=== PATIENT | female | born 1970 | race Caucasian/White ===

== ENCOUNTER 2019-11-09 19:10 | Emergency (ER) | payer BC ==
--- NOTE | 2019-11-09 21:10 | RAD REPORT ---
EXAM DESCRIPTION: RAD - Wrist Left 3 View - 11/09/2019 8:52 pm CLINICAL HISTORY: Left wrist pain status post injury FINDINGS: Subtle transverse lucency is present within the mid aspect of the scaphoid. This could rep resent a prominent trabecula or nondisplaced fracture. If the patient has point tenderness in this re gion further evaluation with CT or MRI may be helpful. No dislocation. Remainder the exam is unremarkable
--- NOTE | 2019-11-09 21:12 | EDPHYS ---
Physician Documentation [facility] Name: Mami Ziegler Age: 48 yrs Sex: Female : 1970 Arrival Date: 11/09/2019 Time: 19:12 Bed 11 Private MD: Wolf Jimenez HPI: 11/08 21:03 This 48 yrs old Female presents to ER via Ambulatory with complaints of Wrist abril Pain. 21:03 The patient or guardian reports decreased range of motion, injury, pain. The complaints abril affect the left wrist diffusely. Context: The problem was sustained at home. Onset: The symptoms/episode began/occurred 2 day(s) ago. Modifying factors: The symptoms are alleviated by elevation, holding still, ice/coldpack to affected area, splinting, the symptoms are aggravated by movement, dependent position. Associated signs and symptoms: The patient has no apparent associated signs or symptoms. Compartment Syndrome negative for numbness, tingling, positive for pain. The patient has not experienced similar symptoms in the past. CHILD WELFARE SPECIALIST: 23:53 LMP N/A - control method ll1 Historical: - Allergies: 19:32 No Known Allergies; ll1 - PMHx: 19:32 Hypertension; Hypothyroidism; Diabetes - NIDDM; ll1 - Immunization history:: Flu vaccine is up to date. - Social history:: Smoking status: Patient denies any tobacco usage or history of. Patient/guardian denies using alcohol, street drugs, tobacco products. - Family history:: not pertinent. ROS: 21:03 Constitutional: Negative for fever, chills, and weight loss, Eyes: Negative for injury, abril pain, redness, and discharge, ENT: Negative for injury, pain, and discharge, Neck: Negative for injury, pain, and swelling, Cardiovascular: Negative for chest pain, palpitations, and edema, Respiratory: Negative for shortness of breath, cough, wheezing, and pleuritic chest pain, Abdomen/GI: Negative for abdominal pain, nausea, vomiting, diarrhea, and constipation, Back: Negative for injury and pain, : Negative for injury, bleeding, discharge, and swelling, Skin: Negative for injury, rash, and discoloration, Neuro: Negative for headache, weakness, numbness, tingling, and seizure, Psych: Negative for depression, anxiety, suicide ideation, homicidal ideation, and hallucinations, Allergy/Immunology: Negative for hives, rash, and allergies, Endocrine: Negative for neck swelling, polydipsia, polyuria, polyphagia, and marked weight changes, Hematologic/Lymphatic: Negative for swollen nodes, abnormal bleeding, and unusual bruising. 21:03 MS/extremity: Positive for decreased range of motion, pain, swelling, of the lateral aspect of left wrist, medial aspect of left wrist and palmar aspect of left wrist. Exam: 21:03 Constitutional: This is a well developed, well nourished patient who is awake, alert, abril and in no acute distress. Head/Face: Normocephalic, atraumatic. Eyes: Pupils equal round and reactive to light, extra-ocular motions intact. Lids and lashes normal. Conjunctiva and sclera are non-icteric and not injected. Cornea within normal limits. Periorbital areas with no swelling, redness, or edema. ENT: Nares patent. No nasal discharge, no septal abnormalities noted. Tympanic membranes are normal and external auditory canals are clear. Oropharynx with no redness, swelling, or masses, exudates, or evidence of obstruction, uvula midline. Mucous membranes moist. Neck: Trachea midline, no thyromegaly or masses palpated, and no cervical lymphadenopathy. Supple, full range of motion without nuchal rigidity, or vertebral point tenderness. No Meningismus. Chest/axilla: Normal chest wall appearance and motion. Nontender with no deformity. No lesions are appreciated. Cardiovascular: Regular rate and rhythm with a normal S1 and S2. No gallops, murmurs, or rubs. Normal PMI, no JVD. No pulse deficits. Respiratory: Lungs have equal breath sounds bilaterally, clear to auscultation and percussion. No rales, rhonchi or wheezes noted. No increased work of breathing, no retractions or nasal flaring. Abdomen/GI: Soft, non-tender, with normal bowel sounds. No distension or tympany. No guarding or rebound. No evidence of tenderness throughout. Back: No spinal tenderness. No costovertebral tenderness. Full range of motion. Skin: Warm, dry with normal turgor. Normal color with no rashes, no lesions, and no evidence of cellulitis. MS/ Extremity: Pulses equal, no cyanosis. Neurovascular intact. Full, normal range of motion. Neuro: Awake and alert, GCS 15, oriented to person, place, time, and situation. Cranial nerves II-XII grossly intact. Motor strength 5/5 in all extremities. Sensory grossly intact. Cerebellar exam normal. Normal gait. Psych: Awake, alert, with orientation to person, place and time. Behavior, mood, and affect are within normal limits. 21:03 Musculoskeletal/extremity: Extremities: noted in the lateral aspect of left wrist and medial aspect of left wrist: decreased ROM, pain, ROM: full active range of motion, full passive range of motion, Circulation is intact in all extremities. Sensation intact. Compartment Syndrome exam of affected extremity: is normal. DVT Exam: negative Homans' sign noted on exam, no appreciated bluish discoloration, no erythema, no increased warmth, pain, swelling, tenderness. Vital Signs: 19:30 BP 134 / 73; Pulse 92; Resp 17; Temp 97.2; Pulse Ox 100% ; Pain 8/10; ll1 MDM: 20:26 Patient medically screened. [facility] 21:06 Data reviewed: vital signs, nurses notes, radiologic studies, plain films. [facility] 21:12 Differential diagnosis: dislocation, closed fracture, contusion, tendonitis. Data abril interpreted: alarm security or surveillance monitor: rate is 92 beats/min, rhythm is normal sinus rhythm, Pulse oximetry: on room air is 100 %. Test interpretation: by ED physician or midlevel provider: plain radiologic studies. Counseling: I had a detailed discussion with the patient and/or guardian regarding: the historical points, exam findings, and any diagnostic results supporting the discharge/admit diagnosis, radiology results, the need for outpatient follow up, for definitive care, a orthopedic surgeon. Medication response: ibuprofen administration has improved the patient's pain. ED course: no fracture seen, return if worse. 11/08 20:40 Order name: XRAY Wrist LEFT 3 view 11/08 21:03 Order name: Splint: cock up splint; Complete Time: 23:52 [facility] 11/08 21:03 Order name: Ice pack; Complete Time: 21:11 [facility] Administered Medications: 21:08 Drug: Motrin 600 mg Route: PO; 21:45 Follow up: Response: No adverse reaction; RASS: Alert and Calm (0) ll1 Disposition: 11/09/19 21:11 Discharged to Home. Impression: Fall due to bumping against object, Pain in left wrist. - Condition is Stable. - Discharge Instructions: Joint Pain, Musculoskeletal Pain, Wrist Pain, Cryotherapy, [id number], Cryotherapy, Joint Pain, [id number]. - Prescriptions for Tylenol- Codeine #3 300-30 mg Oral Tablet - take 2 tablets by ORAL route every 6 hours As needed; 24 tablet. Motrin IB 200 mg Oral Tablet - take 2 tablet by ORAL route every 6 hours As needed as needed with food; 30 tablet. - Medication Reconciliation Form, Thank You Letter, Antibiotic Education, Prescription Opioid Use, Work release form form. - Follow up: Private Physician; When: 2 - 3 days; Reason: Recheck today's complaints, Continuance of care, Re-evaluation by your physician. Follow up: Jeyson Gardiner MD; When: 2 - 3 days; Reason: Recheck today's complaints, Continuance of care, Re-evaluation by your physician. - Problem is new. - Symptoms have improved. Signatures: Dispatcher [employer] EDFlip Stock RN RN Wolf Pastrana MD MD cha Lewis, Lynsay, RN RN ll1 Corrections: (The following items were deleted from the chart) 21:11 21:11 11/09/2019 21:11 Discharged to Home. Impression: Fall due to bumping against abril object; Pain in left wrist. Condition is Stable. Forms are Medication Reconciliation Form, Thank You Letter, Antibiotic Education, Prescription Opioid Use. Follow up: Private Physician; When: 2 - 3 days; Reason: Recheck today's complaints, Continuance of care, Re-evaluation by your physician. Problem is new. Symptoms have improved. [facility] 21:47 21:11 11/09/2019 21:11 Discharged to Home. Impression: Fall due to bumping against ll1 object; Pain in left wrist. Condition is Stable. Forms are Medication Reconciliation Form, Thank You Letter, Antibiotic Education, Prescription Opioid Use. Follow up: Private Physician; When: 2 - 3 days; Reason: Recheck today's complaints, Continuance of care, Re-evaluation by your physician. Follow up: Jeyson Gardiner; When: 2 - 3 days; Reason: Recheck today's complaints, Continuance of care, Re-evaluation by your physician. Problem is new. Symptoms have improved. abril
--- NOTE | 2019-11-09 21:12 | ER ---
Nurse's Notes [facility] Name: Mami Ziegler Age: 48 yrs Sex: Female : 1970 Arrival Date: 11/09/2019 Time: 19:12 Bed 11 Private MD: Diagnosis: Fall due to bumping against object;Pain in left wrist Presentation: 11/08 19:30 Chief complaint: Patient states: Left wrist pain after trip and fall Sunday night. Left ll1 lateral wrist pain since. Coronavirus screen: Proceed with normal triage. Patient denies a cough. Patient denies shortness of breath or difficulty breathing. Patient denies measured and/or subjective temperature greater than 100.4F prior to today's visit. Patient denies travel on a cruise ship or to a country the [facility] currently lists as an affected area. Patient denies contact with known and/or suspected case of COVID-19. Ebola Screen: Patient denies travel to an Ebola-affected area in the 21 days before illness onset. Initial Sepsis Screen: Does the patient meet any 2 criteria?. Risk Assessment: Do you want to hurt yourself or someone else? Patient reports no desire to harm self or others. Onset of symptoms was November 07, 2019. 19:30 Method Of Arrival: Ambulatory 1 19:30 Acuity: FRANK 4 ll1 23:53 Initial Sepsis Screen: Does the patient have a suspected source of infection? No. ll1 Patient's initial sepsis screen is negative. REGISTRATION REP: 23:53 LMP N/A - control method ll1 Historical: - Allergies: 19:32 No Known Allergies; ll1 - PMHx: 19:32 Hypertension; Hypothyroidism; Diabetes - NIDDM; ll1 - Immunization history:: Flu vaccine is up to date. - Social history:: Smoking status: Patient denies any tobacco usage or history of. Patient/guardian denies using alcohol, street drugs, tobacco products. - Family history:: not pertinent. Screenin:30 Abuse screen: Denies threats or abuse. Nutritional screening: No deficits noted. ll1 Tuberculosis screening: No symptoms or risk factors identified. Fall Risk None identified. Total Carrington Fall Scale indicates No Risk (0-24 pts). Assessment: 20:29 General: Appears in no apparent distress. Behavior is calm, cooperative. Pain: ll1 Complains of pain in left lateral wrist Quality of pain is described as aching, Pain began 2-3 days ago. Is intermittent. Neuro: No deficits noted. Cardiovascular: No deficits noted. Respiratory: No deficits noted. Musculoskeletal: Circulation, motion, and sensation intact. Capillary refill < 3 seconds, Tenderness present in left lateral wrist Reports pain in left lateral wrist. 21:30 Reassessment: Patient appears in no apparent distress at this time. No changes from 1 previously documented assessment. Patient and/or family updated on plan of care and expected duration. Pain level reassessed. Patient is alert, oriented x 3, equal unlabored respirations, skin warm/dry/pink. Vital Signs: 19:30 BP 134 / 73; Pulse 92; Resp 17; Temp 97.2; Pulse Ox 100% ; Pain 8/10; ll1 ED Course: 19:12 Patient arrived in ED. ag3 19:32 Triage completed. ll1 19:33 Arm band placed on Patient notified of wait time. 1 20:01 Flip Guzman RN is Primary Nurse. sg 20:26 Wolf Pastrana MD is Attending Physician. [facility] 20:30 Patient has correct armband on for positive identification. Bed in low position. Call ll1 light in reach. Side rails up X 1. 20:52 XRAY Wrist LEFT 3 view In Process Unspecified. EDMS 21:11 Jeyson Gardiner MD is Referral Physician. [facility] 21:28 Patient did not have IV access during this emergency room visit. Velcro wrist splint ll1 applied to left wrist. PMS intact pre and post splint application. 23:53 No provider procedures requiring assistance completed. ll1 Administered Medications: 21:08 Drug: Motrin 600 mg Route: PO; sg 21:45 Follow up: Response: No adverse reaction; RASS: Alert and Calm (0) 1 Outcome: 21:11 Discharge ordered by . abril 21:47 Patient left the ED. ll1 21:47 Discharged to home ambulatory. 1 21:47 Condition: stable 21:47 Discharge instructions given to patient, Instructed on discharge instructions, follow up and referral plans. medication usage, Demonstrated understanding of instructions, follow-up care, medications, splint care, Prescriptions given X 2. Signatures: Dispatcher [employer] EDMS Flip Guzman RN RN sg Anderson, Corey, MD MD cha Gomez, Alice ag3 Karolina العراقي, RN RN ll1
[2019-11-09] MEDS ORDERED: IBUPROFEN 200 MG TAB PO ONE (21:16)
[2019-11-09 21:53] VITALS: BP 134/73; TEMP 97.2; O2SAT 100
== END 2019-11-09 21:47 | disposition home or self-care (01) ==
LOC: ER 19:10
DX: M25.532 Pain in left wrist (principal); W18.00XA Striking against unspecified object with subsequent fall, initial encounter; Y93.01 Activity, walking, marching and hiking; Y92.009 Unspecified place in unspecified non-institutional (private) residence as the place of occurrence of the external cause; I10 Essential (primary) hypertension
CPT/HCPCS: 99284

== ENCOUNTER 2022-08-06 02:25 | Emergency (ER) | payer BC ==
--- OUTSIDE RECORDS SUMMARY | 2022-08-06 02:28 | XMS REPORT | Continuity of Care Document ---
:1970 Author Organization [facility] t Address [address] [facility] [address] [place] [id number] Care Team Providers Name Role Phone JENNIFER SCHAFER Primary Care Physician Unavailable STAS DIEHL III Attending Clinician Unavailable King FREDA MD, James C Attending Clinician Unknown, Attending Attending Clinician Unavailable Doctor Unassigned, [place] Attending Clinician Unavailable Jennifer Schafer Attending Clinician Tammy Castro Attending Clinician TAMMY CARRERA Attending Clinician Unavailable Carolina Owen RN Attending Clinician Unavailable Only, Dmitriy Poole Test Attending Clinician Unavailable Lucas Rosenberg MD Attending Clinician LUCAS ROSENBERG Attending Clinician Unavailable Jenna Gonzales RN Attending Clinician Unavailable Nurse, Dmitriy [facility] Attending Clinician Unavailable BREE MILAN Attending Clinician Unavailable Bree Robins Attending Clinician Gabriella Medina RN Attending Clinician Unavailable Hanna Martinez Attending Clinician HANNA PALACIOS Attending Clinician Unavailable ODETTE PERDOMO Attending Clinician Unavailable Coral Oneil Attending Clinician CORAL PELLETIER Attending Clinician Unavailable Nirav Moyer MD Attending Clinician NIRAV MOYER Attending Clinician Unavailable Payers Payer Name Policy Type Policy Number Effective Date Expiration Date S ource [facility] [id number] 2017 00:00:00 SELECT Problems Condition Condition Condition Status Onset Resolution Last Treating Co mments Source Name Details Category Date Date Treatment Clinician Date TFCC TFCC Disease Active Methodi (triangula (triangula 7-20 st r r 00:00: Hospita fibrocarti fibrocarti 00 l angela angela complex) complex) injury, injury, left, left, initial initial encounter encounter No known No known Disease Unive rs active active ity of problems problems [facility] Allergies, Adverse Reactions, Alerts Allergy Allergy Status Severity Reaction(s) Onset Inactive Treating Comm ents Source Name Type Date Date Clinician Dog Propensi Active Other (See Meth keaton Dander ty to Comments) 01-18 adverse 00:00: Hospita reaction 00 l s to drug Ragweed Propensi Active Other (See Met hodi Pollen ty to Comments) 01-18 adverse 00:00: Hospita reaction 00 l s to drug NO KNOWN Drug Active Univers ALLERGIE Class ity of S [facility] Family History Family Member Diagnosis Comments Start Date Stop Date Source Maternal grandmother Cancer [facility] Natural mother Heart disease [facility] Natural sister Diabetes [facility] Natural son Heart disease [facility] Social History Social Habit Start Date Stop Date Quantity Comments Source Exposure to 2022-07-09 2022-07-19 Not sure [facility]-CoV-2 00:00:00 14:54:00 [facility] (event) [place] Alcohol intake 2020-01-19 2020-01-19 Ex-drinker [facility] 00:00:00 00:00:00 (finding) Tobacco use and 2019-11-13 2019-11-13 Smokeless tobacco Un iversity of exposure 00:00:00 00:00:00 non-user [facility] Sex Ass[birth year] At [birth year] Universit y of 00:00:00 00:00:00 [facility] Smoking Status Start Date Stop Date Source Never smoked tobacco [facility] Medications Ordered Filled Start Stop Current Ordering Indication Dosage Frequency Signature Comments Components Source Medication Medication Date Date Medication? Clinician (SIG) Name Name rizatriptan Yes [id number] 5mg Take 1 Univers 5 mg 3-01 tablet by ity of [place] 00 needed for Med ical Migraine. Branch May repeat in 2 hours if needed rizatriptan 2022-0 Yes [id number] 5mg Take 1 Univers 5 mg 3-01 tablet by ity of [place] 00 needed for Med ical Migraine. Branch May repeat in 2 hours if needed ondansetron 2022-0 2022- Yes [id number] 4mg Take 1 Univers 4 mg 1-06 -12 tablet by ity of [place] 05:[place] :00 every 8 Medica l (eight) Branch hours as needed for Nausea and Vomiting (N/V) for up to 5 days. losartan 50 2021-0 Yes [id number] 50mg Take 1 Univers mg tablet 6-15 tablet by ity o f 00:00: mouth [place] 00 daily. Medical Branch losartan 50 0 Yes [id number] 50mg Take 1 Univers mg tablet 6-15 tablet by ity o f 00:00: mouth [place] 00 daily. Medical Branch losartan 50 0 Yes [id number] 50mg Take 1 Univers mg tablet 6-15 tablet by ity o f 00:00: mouth [place] 00 daily. Medical Branch losartan 50 2021-0 Yes [id number] 50mg Take 1 Univers mg tablet 6-15 tablet by ity o f 00:00: mouth [place] 00 daily. Medical Branch losartan 50 2021-0 Yes [id number] 50mg Take 1 Univers mg tablet 6-15 tablet by ity o f 00:00: mouth [place] 00 daily. Medical Branch losartan 50 2021-0 Yes [id number] 50mg Take 1 Univers mg tablet 6-15 tablet by ity o f 00:00: mouth [place] 00 daily. Medical Branch losartan 50 2021-0 Yes [id number] 50mg Take 1 Univers mg tablet 6-15 tablet by ity o f 00:00: mouth [place] 00 daily. Medical Branch losartan 50 2021-0 Yes [id number] 50mg Take 1 Univers mg tablet 6-15 tablet by ity o f 00:00: mouth [place] 00 daily. Medical Branch losartan 50 2021-0 Yes [id number] 50mg Take 1 Univers mg tablet 6-15 tablet by ity o f 00:00: mouth [place] 00 daily. Medical Branch losartan 50 Yes [id number] 50mg Take 1 Univers mg tablet 6-15 tablet by ity o f 00:00: mouth [place] 00 daily. Medical Branch meloxicam 2019-05 Yes 15mg QD Take 15 mg Me thodi (MOBIC) 15 0-[address] mg tablet 13:05: daily. Hospit a 04 l VICTOZA Yes INJECT 0.6 Univ ers 3-RENNY 0.6 6-21 MG ity of mg/0.1 mL 00:00: [place]O [place] (18 mg/3 00 BLANCA DAILY Medic al mL) FOR THE Branch injection FIRST WEEK THEN INJECT 1.2 MG THE SECOND WEEK THEN 1.8 MG DAILY FOR 30 DAYS VICTOZA Yes INJECT 0.6 Univ ers 3-RENNY 0.6 6-21 MG ity of mg/0.1 mL 00:00: [place] (18 mg/3 00 BLANCA DAILY Medic al mL) FOR THE Branch injection FIRST WEEK THEN INJECT 1.2 MG THE SECOND WEEK THEN 1.8 MG DAILY FOR 30 DAYS VICTOZA Yes INJECT 0.6 Univ ers 3-RENNY 0.6 6-21 MG ity of mg/0.1 mL 00:00: [place]ANEO [place] (18 mg/3 00 BLANCA DAILY Medic al mL) FOR THE Branch injection FIRST WEEK THEN INJECT 1.2 MG THE SECOND WEEK THEN 1.8 MG DAILY FOR 30 DAYS VICTOZA Yes INJECT 0.6 Univ ers 3-RENNY 0.6 6-21 MG ity of mg/0.1 mL 00:00: [place] (18 mg/3 00 BLANCA DAILY Medic al mL) FOR THE Branch injection FIRST WEEK THEN INJECT 1.2 MG THE SECOND WEEK THEN 1.8 MG DAILY FOR 30 DAYS VICTOZA Yes INJECT 0.6 Univ ers 3-RENNY 0.6 6-21 MG ity of mg/0.1 mL 00:00: [place] (18 mg/3 00 BLANCA DAILY Medic al mL) FOR THE Branch injection FIRST WEEK THEN INJECT 1.2 MG THE SECOND WEEK THEN 1.8 MG DAILY FOR 30 DAYS VICTOZA Yes INJECT 0.6 Univ ers 3-RENNY 0.6 6-21 MG ity of mg/0.1 mL 00:00: [place] (18 mg/3 00 BLANCA DAILY Medic al mL) FOR THE Branch injection FIRST WEEK THEN INJECT 1.2 MG THE SECOND WEEK THEN 1.8 MG DAILY FOR 30 DAYS VICTOZA Yes INJECT 0.6 Univ ers 3-RENNY 0.6 6-21 MG ity of mg/0.1 mL 00:00: [place]ANEO [place] (18 mg/3 00 BLANCA DAILY Medic al mL) FOR THE Branch injection FIRST WEEK THEN INJECT 1.2 MG THE SECOND WEEK THEN 1.8 MG DAILY FOR 30 DAYS VICTOZA Yes INJECT 0.6 Univ ers 3-RENNY 0.6 6-21 MG ity of mg/0.1 mL 00:00: [place]ANEO [place] (18 mg/3 00 BLANCA DAILY Medic al mL) FOR THE Branch injection FIRST WEEK THEN INJECT 1.2 MG THE SECOND WEEK THEN 1.8 MG DAILY FOR 30 DAYS VICTOZA Yes INJECT 0.6 Univ ers 3-RENNY 0.6 6-21 MG ity of mg/0.1 mL 00:00: [place]ANEO [place] (18 mg/3 00 BLANCA DAILY Medic al mL) FOR THE Branch injection FIRST WEEK THEN INJECT 1.2 MG THE SECOND WEEK THEN 1.8 MG DAILY FOR 30 DAYS VICTOZA Yes INJECT 0.6 Univ ers 3-RENNY 0.6 6-21 MG ity of mg/0.1 mL 00:00: [place]ANEO [place] (18 mg/3 00 BLANCA DAILY Medic al mL) FOR THE Branch injection FIRST WEEK THEN INJECT 1.2 MG THE SECOND WEEK THEN 1.8 MG DAILY FOR 30 DAYS VICTOZA Yes INJECT 0.6 Univ ers 3-RENNY 0.6 6-21 MG ity of mg/0.1 mL 00:00: SUBCUTANEO [place] (18 mg/3 00 BLANCA DAILY Medic al mL) FOR THE Branch injection FIRST WEEK THEN INJECT 1.2 MG THE SECOND WEEK THEN 1.8 MG DAILY FOR 30 DAYS VICTOZA Yes INJECT 0.6 Univ ers 3-RENNY 0.6 6-21 MG ity of mg/0.1 mL 00:00: [place]ANEO [place] (18 mg/3 00 BLANCA DAILY Medic al mL) FOR THE Branch injection FIRST WEEK THEN INJECT 1.2 MG THE SECOND WEEK THEN 1.8 MG DAILY FOR 30 DAYS VICTOZA 2020-0 Yes INJECT 0.6 Univ ers 3-RENNY 0.6 6-21 MG ity of mg/0.1 mL 00:00: [place] (18 mg/3 00 BLANCA DAILY Medic al mL) FOR THE Branch injection FIRST WEEK THEN INJECT 1.2 MG THE SECOND WEEK THEN 1.8 MG DAILY FOR 30 DAYS SUMAtriptan 2020-0 Yes TAKE 1 Univ ers 50 mg 5-14 TABLET BY ity of tablet 00:00: MOUTH [place] 00 TWICE Medical DAILY Branch NEEDED FOR 10 DAYS SUMAtriptan 2019-0 Yes TAKE 1 Univ ers 50 mg 5-14 TABLET BY ity of tablet 00:00: MOUTH [place] 00 TWICE Medical DAILY Branch NEEDED FOR 10 DAYS SUMAtriptan 2019-0 Yes TAKE 1 Univ ers 50 mg 5-14 TABLET BY ity of tablet 00:00: MOUTH [place] 00 TWICE Medical DAILY Branch NEEDED FOR 10 DAYS SUMAtriptan 2019-0 Yes TAKE 1 Univ ers 50 mg 5-14 TABLET BY ity of tablet 00:00: MOUTH [place] 00 TWICE Medical DAILY Branch NEEDED FOR 10 DAYS SUMAtriptan 2020-0 Yes TAKE 1 Univ ers 50 mg 5-14 TABLET BY ity of tablet 00:00: MOUTH [place] 00 TWICE Medical DAILY Branch NEEDED FOR 10 DAYS SUMAtriptan 2020-0 Yes TAKE 1 Univ ers 50 mg 5-14 TABLET BY ity of tablet 00:00: MOUTH [place] 00 TWICE Medical DAILY Branch NEEDED FOR 10 DAYS SUMAtriptan 2019-0 Yes TAKE 1 Univ ers 50 mg 5-14 TABLET BY ity of tablet 00:00: MOUTH [place] 00 TWICE Medical DAILY Branch NEEDED FOR 10 DAYS SUMAtriptan 2020-0 Yes TAKE 1 Univ ers 50 mg 5-14 TABLET BY ity of tablet 00:00: MOUTH [place] 00 TWICE Medical DAILY Branch NEEDED FOR 10 DAYS SUMAtriptan 2020-0 Yes TAKE 1 Univ ers 50 mg 5-14 TABLET BY ity of tablet 00:00: MOUTH [place] 00 TWICE Medical DAILY Branch NEEDED FOR 10 DAYS SUMAtriptan 2020-0 Yes TAKE 1 Univ ers 50 mg 5-14 TABLET BY ity of tablet 00:00: MOUTH [place] 00 TWICE Medical DAILY Branch NEEDED FOR 10 DAYS SUMAtriptan 2020-0 Yes TAKE 1 Univ ers 50 mg 5-14 TABLET BY ity of tablet 00:00: MOUTH [place] 00 TWICE Medical DAILY Branch NEEDED FOR 10 DAYS SUMAtriptan 2020-0 Yes TAKE 1 Univ ers 50 mg 5-14 TABLET BY ity of tablet 00:00: MOUTH [place] 00 TWICE Medical DAILY Branch NEEDED FOR 10 DAYS SUMAtriptan 2020-0 Yes TAKE 1 Univ ers 50 mg 5-14 TABLET BY ity of tablet 00:00: MOUTH [place] 00 TWICE Medical DAILY Branch NEEDED FOR 10 DAYS EUTHYROX 2020-0 Yes TAKE 1 Univers 100 mcg 5-13 TABLET BY ity of tablet 00:00: MOUTH ONCE [place] 00 DAILY ON Medical AN EMPTY Branch STOMACH IN THE MORNING EUTHYROX 2020-0 Yes TAKE 1 Univers 100 mcg 5-13 TABLET BY ity of tablet 00:00: MOUTH ONCE [place] 00 DAILY ON Medical AN EMPTY Branch STOMACH IN THE MORNING EUTHYROX 2020-0 Yes TAKE 1 Univers 100 mcg 5-13 TABLET BY ity of tablet 00:00: MOUTH ONCE [place] 00 DAILY ON Medical AN EMPTY Branch STOMACH IN THE MORNING EUTHYROX 2020-0 Yes TAKE 1 Univers 100 mcg 5-13 TABLET BY ity of tablet 00:00: MOUTH ONCE [place] 00 DAILY ON Medical AN EMPTY Branch STOMACH IN THE MORNING EUTHYROX 2020-0 Yes TAKE 1 Univers 100 mcg 5-13 TABLET BY ity of tablet 00:00: MOUTH ONCE [place] 00 DAILY ON Medical AN EMPTY Branch STOMACH IN THE MORNING EUTHYROX 2020-0 Yes TAKE 1 Univers 100 mcg 5-13 TABLET BY ity of tablet 00:00: MOUTH ONCE [place] 00 DAILY ON Medical AN EMPTY Branch STOMACH IN THE MORNING EUTHYROX 2020-0 Yes TAKE 1 Univers 100 mcg 5-13 TABLET BY ity of tablet 00:00: MOUTH ONCE [place] 00 DAILY ON Medical AN EMPTY Branch STOMACH IN THE MORNING EUTHYROX 2020-0 Yes TAKE 1 Univers 100 mcg 5-13 TABLET BY ity of tablet 00:00: MOUTH ONCE [place] 00 DAILY ON Medical AN EMPTY Branch STOMACH IN THE MORNING EUTHYROX 2020-0 Yes TAKE 1 Univers 100 mcg 5-13 TABLET BY ity of tablet 00:00: MOUTH ONCE [place] 00 DAILY ON Medical AN EMPTY Branch STOMACH IN THE MORNING EUTHYROX 2020-0 Yes TAKE 1 Univers 100 mcg 5-13 TABLET BY ity of tablet 00:00: MOUTH ONCE [place] 00 DAILY ON Medical AN EMPTY Branch STOMACH IN THE MORNING EUTHYROX 2020-0 Yes TAKE 1 Univers 100 mcg 5-13 TABLET BY ity of tablet 00:00: MOUTH ONCE 00 DAILY ON Medical AN EMPTY Branch STOMACH IN THE MORNING EUTHYROX 2020-0 Yes TAKE 1 Univers 100 mcg 5-13 TABLET BY ity of tablet 00:00: MOUTH ONCE 00 DAILY ON Medical AN EMPTY Branch STOMACH IN THE MORNING EUTHYROX 2020-0 Yes TAKE 1 Univers 100 mcg 5-13 TABLET BY ity of tablet 00:00: MOUTH ONCE 00 DAILY ON Medical AN EMPTY Branch STOMACH IN THE MORNING levothyroxi 2020-0 Yes TAKE 1 Meth [place] ne 5-[address] (Euthyrox) 00:00: MOUTH ONCE [facility] 100 mcg 00 DAILY ON l tablet AN EMPTY STOMACH IN THE MORNING atorvastati 2020-0 Yes TAKE 1 Univ ers n 20 mg 4-11 TABLET BY ity of tablet 00:00: MOUTH 00 EVERY DAY Medical AT [facility] FOR 30 DAYS atorvastati 2020-0 Yes TAKE 1 Univ ers n 20 mg 4-11 TABLET BY ity of tablet 00:00: MOUTH 00 EVERY DAY Medical AT [facility] FOR 30 DAYS atorvastati 2020-0 Yes TAKE 1 Univ ers n 20 mg 4-11 TABLET BY ity of tablet 00:00: MOUTH 00 [facility] at[facility]vastati 2020-0 Yes TAKE 1 Univ ers n 20 mg 4-11 TABLET BY ity of tablet 00:00: MOUTH 00 [facility] atorvastati 2020-0 Yes TAKE 1 Univ ers n 20 mg 4-11 TABLET BY ity of tablet 00:00: MOUTH 00 EVERY DAY Medical AT BEDTIME [place] FOR 30 DAYS atorvastati 2020-0 Yes TAKE 1 Univ ers n 20 mg 4-11 TABLET BY ity of tablet 00:00: MOUTH 00 EVERY DAY Medical AT BEDTIME [place] FOR 30 DAYS atorvastati 2020-0 Yes TAKE 1 Univ ers n 20 mg 4-11 TABLET BY ity of tablet 00:00: MOUTH 00 EVERY DAY Medical AT BEDTIME [place] FOR 30 DAYS atorvastati 2020-0 Yes TAKE 1 Univ ers n 20 mg 4-11 TABLET BY ity of tablet 00:00: MOUTH 00 EVERY DAY Medical AT BEDTIME [place] FOR 30 DAYS atorvastati 2020-0 Yes TAKE 1 Univ ers n 20 mg 4-11 TABLET BY ity of tablet 00:00: MOUTH [place] 00 EVERY DAY Medical AT BEDTIME [place] FOR 30 DAYS atorvastati 2020-0 Yes TAKE 1 Univ ers n 20 mg 4-11 TABLET BY ity of tablet 00:00: MOUTH [place] 00 EVERY DAY Medical AT BEDTIME [place] FOR 30 DAYS atorvastati 2020-0 Yes TAKE 1 Univ ers n 20 mg 4-11 TABLET BY ity of tablet 00:00: MOUTH [place] 00 EVERY DAY Medical AT BEDTIME [place] FOR 30 DAYS atorvastati 2020-0 Yes TAKE 1 Univ ers n 20 mg 4-11 TABLET BY ity of tablet 00:00: MOUTH [place] 00 EVERY DAY Medical AT BEDTIME [place] FOR 30 DAYS atorvastati 2020-0 Yes TAKE 1 Univ ers n 20 mg 4-11 TABLET BY ity of tablet 00:00: MOUTH [place] 00 EVERY DAY Medical AT [facility] FOR 30 DAYS losartan 50 2020-0 Yes TAKE 1 Univ ers mg tablet 4-06 TABLET BY ity o f 00:00: MOUTH ONCE [place] 00 DAILY FOR Medical 90 DAYS Branch hydroCHLORO 2020-0 Yes 12.5mg Take 12.5 Univers thiazide 4-06 mg by ity of 12.5 mg 00:00: mouth [place] tablet 00 daily. Medical Branch hydroCHLORO 2020-0 Yes 12.5mg Take 12.5 Univers thiazide 4-06 mg by ity of 12.5 mg 00:00: mouth [place] tablet 00 daily. Medical Branch hydroCHLORO 2020-0 Yes 12.5mg Take 12.5 Univers thiazide 4-06 mg by ity of 12.5 mg 00:00: mouth [place] tablet 00 daily. Medical Branch hydroCHLORO 2020-0 Yes 12.5mg Take 12.5 Univers thiazide 4-06 mg by ity of 12.5 mg 00:00: mouth [place] tablet 00 daily. Medical Branch hydroCHLORO 2020-0 Yes 12.5mg Take 12.5 Univers thiazide 4-06 mg by ity of 12.5 mg 00:00: mouth [place] tablet 00 daily. Medical Branch hydroCHLORO 2020-0 Yes 12.5mg Take 12.5 Univers thiazide 4-06 mg by ity of 12.5 mg 00:00: mouth [place] tablet 00 daily. Medical Branch hydroCHLORO 2020-0 Yes 12.5mg Take 12.5 Univers thiazide 4-06 mg by ity of 12.5 mg 00:00: mouth [place] tablet 00 daily. Medical Branch hydroCHLORO 2020-0 Yes 12.5mg Take 12.5 Univers thiazide 4-06 mg by ity of 12.5 mg 00:00: mouth [place] tablet 00 daily. Medical Branch losartan 50 0 Yes TAKE 1 Univ ers mg tablet 4-06 TABLET BY ity o f 00:00: MOUTH ONCE [place] 00 DAILY FOR Medical 90 DAYS Branch hydroCHLORO 2019-0 Yes 12.5mg Take 12.5 Univers thiazide 4-06 mg by ity of 12.5 mg 00:00: mouth [place] tablet 00 daily. Medical Branch losartan 50 Yes TAKE 1 Univ ers mg tablet 4-06 TABLET BY ity o f 00:00: MOUTH ONCE [place] 00 DAILY FOR Medical 90 DAYS Branch hydroCHLORO 2019-0 Yes 12.5mg Take 12.5 Univers thiazide 4-06 mg by ity of 12.5 mg 00:00: mouth [place] tablet 00 daily. Medical Branch hydroCHLORO 2019-0 Yes 12.5mg Take 12.5 Univers thiazide 4-06 mg by ity of 12.5 mg 00:00: mouth [place] tablet 00 daily. Medical Branch hydroCHLORO 2020-0 Yes 12.5mg Take 12.5 Univers thiazide 4-06 mg by ity of 12.5 mg 00:00: mouth [place] tablet 00 daily. Medical Branch hydroCHLORO 2019-0 Yes 12.5mg Take 12.5 Univers thiazide 4-06 mg by ity of 12.5 mg 00:00: mouth [place] tablet 00 daily. Medical Branch losartan 50 0 2021- No TAKE 1 Uni vers mg tablet 4-06 06-15 TABLET BY ity of 00:00: 00:00 MOUTH ONCE [place] 00 :00 DAILY FOR Medical 90 DAYS Branch losartan 2014-05 Yes [facility] (COZAAR) 50 2-10 [facility] MG tablet 00:00: Hospita 00 l metFORMIN Yes Methodi (GLUCOPHAGE 8-03 st ) 1,000 mg 00:00: Hospita tablet 00 l Vital Signs Vital Name Observation Time Observation Value Comments Source Systolic blood 2022-07-19 21:01:00 129 mm[Hg] Univer sity of pressure [facility] Diastolic blood 2022-07-19 21:01:00 89 mm[Hg] Unive rsity of pressure [place] [facility] Heart rate 2022-07-19 21:01:00 84 /min Universi ty of [place] [facility] Body temperature 2022-07-19 21:01:00 36.94 Ember Univ ersity of [place] [facility] Respiratory rate 2022-07-19 21:01:00 16 /min Univ ersity of [place] [facility] Body height 2022-07-19 21:01:00 165.1 cm Universi ty of [place] [facility] Body weight 2022-07-19 21:01:00 95.057 kg Universi ty [facility] [place] [facility] BMI 2022-07-19 21:01:00 34.87 kg/m2 Universi ty of [place] [facility] Oxygen saturation in 2022-07-19 21:01:00 96 /min University of Arterial blood by [facility] [place] [facility] Pulse oximetry Branch Systolic blood 2022-05-26 20:08:00 138 mm[Hg] Univer sity of pressure [place] [facility] Diastolic blood 2022-05-26 20:08:00 86 mm[Hg] Unive rsity of pressure [place] [facility] Heart rate 2022-05-26 20:08:00 88 /min Universi ty of [place] [facility] Body temperature 2022-05-26 20:08:00 36.67 Ember Univ ersity of [place] [facility] Respiratory rate 2022-05-26 20:08:00 17 /min Univ ersity of [place] [facility] Body weight 2022-05-26 20:08:00 94.53 kg Universi ty [facility] [place] [facility] BMI 2022-05-26 20:08:00 34.68 kg/m2 Universi ty [facility] [place] [facility] Oxygen saturation in 2022-05-26 20:08:00 98 /min University of Arterial blood by [facility] [place] [facility] Pulse oximetry Branch Systolic blood 2021-11-02 19:11:00 152 mm[Hg] Univer sity of pressure [place] [facility] Diastolic blood 2021-11-02 19:11:00 92 mm[Hg] Unive rsity of pressure [place] [facility] Heart rate 2021-11-02 19:08:00 82 /min Universi ty [facility] [place] [facility] Body temperature 2021-11-02 19:08:00 36.67 Ember Univ ersity of [place] [facility] Respiratory rate 2021-11-02 19:08:00 18 /min [facility] height 2021-11-02 19:08:[address] [facility] Body weight 2021-11-02 19:08:[address] [facility] BMI 2021-11-02 19:08:00 35.23 kg/m2 Universi [facility] [place] [facility] Oxygen saturation in 2021-11-02 19:08:00 96 /min [facility] Arterial blood by [facility] [place] [facility] Pulse oximetry Branch Systolic blood 2019-11-13 20:13:00 119 mm[Hg] Univer sity of [facility] Diastolic blood 2019-11-13 20:13:00 74 mm[Hg] [facility] Heart rate 2019-11-13 20:13:00 86 /min Universi ty [facility] Respiratory rate 2019-11-13 20:13:00 18 /min [facility] Body height 2019-11-13 20:13:[address] [facility] Body weight 2019-11-13 20:13:[address] [facility] BMI 2019-11-13 20:13:00 31.96 kg/m2 Universi ty [facility] Procedures Procedure Date / Time Performed Performing Clinician [facility] lizeth MDGABE PATIENT 2022-07-19 20:55:35 Doctor Unassigned, No [facility] FINANCIAL POLICY Name [facility] CONSENT/REFUSAL FOR 2022-05-26 20:02:00 Doctor Unassigned, No Un [facility] DIAGNOSIS AND Name Medical Branch TREATMENT POCT MOLECULAR FLU 2021-11-02 19:14:00 Bree Milan [facility] Plan of Care Planned Activity Planned Date Details Comments Source Future Scheduled 2022-05-07 COVID-19 VACCINE (#1) [facility] Test 11:39:05 [code = COVID-19 VACCINE (#1)] Future Scheduled 2022-05-07 Hepatitis C screening [facility] Test 11:39:05 (procedure) [code = 363524700] Future Scheduled 2022-05-[address] [facility] Test 11:39:05 malignant neoplasm of cervix (procedure) [code = 393247222] Future Scheduled 2022-05-[address] [facility] Test 11:39:05 SCREENING [code = BREAST CANCER SCREENING] Future Scheduled 2022-05-07 COLONOSCOPY SCREENING [facility] Test 11:39:05 [code = COLONOSCOPY SCREENING] Future Scheduled 2022-05-07 SHINGLES VACCINES (1 Met [facility] Test 11:39:05 of 2) [code = SHINGLES VACCINES (1 of 2)] Future Scheduled 2022-05-07 INFLUENZA VACCINE Method [facility] Test 11:39:05 [code = INFLUENZA VACCINE] Encounters Start End Encounter Admission Attending Care Care Encounter Source Date/Time Date/Time Type Type Clinicians Facility Department ID 2022-07-19 2022-07-19 Outpatient Dilcia DIEHL III [facility] [id number] Univers 15:20:00 15:49:10 STAS ityelena of [facility] 2022-07-19 2022-07-19 Stas Tamayo [facility] [id number] Univers 15:20:00 15:40:00 Care Unknown, Attending HEALTH [id number] ity of [place] 4.2.7.2.686 Fabio as VERITO?BLEA [id number] [address] MEDICAL OFFICE BUILDING 2022-07-19 2022-07-19 Orders Doctor YVETTE 1.2.840.114 [id number] Univers 00:00:00 00:00:00 Only Unassigned, [place] [id number] ity of [place] [facility] 4.2.7.2.686 Fabio as [id number] [address] 2022-07-19 2022-07-19 Letter Gilmar [facility] [id number] Univers 00:00:00 00:00:00 (Out) Jennifer Yoo [facility] 350.1.13.10 ity of [place] 4.2.7.2.686 Fabio as VERITO?BLEA [id number] [address] MEDICAL OFFICE BUILDING 2022-05-26 2022-05-26 Urgent Tammy Carrera [facility] [id number] Univers 14:00:00 14:20:00 Care Unknown, Attending HEALTH [id number] [facility] 4.2.7.2.686 Fabio as VERITO?BLEA [id number] [address] MEDICAL OFFICE BUILDING 2022-05-26 2022-05-26 Outpatient R CARRERA [facility] [id number] Univers 14:00:00 14:00:[address] [facility] 2022-05-26 2022-05-26 Orders Doctor YVETTE [id number] [id number] Univers 00:00:00 00:00:00 Only UnassignedNORMAN 350.1.13.10 ity of [place] [facility] 4.2.7.2.686 Fabio as [id number] [address] 2022-03-19 2022-03-19 Letter YVETTE Owen 1.2.840.114 [id number] Univers 00:00:00 00:00:00 (Out) [place] 350.1.13.10 it y of HOSPITAL 4.2.7.2.686 Fabio as [id number] [facility] 019 [place] 2022-03-18 2022-03-18 Laboratory Only, Dmitriy Db Test [facility] 1.2.8 40.114 [id number] Univers 16:45:00 17:00:00 Only [facility] 350.1.13. 10 ity of [place] 4.2.7.2.686 Fabio as VERITO?BLEA [id number] [address] MEDICAL OFFICE [facility] [address] 2022-03-18 2022-03-18 Outpatient R [facility] [id number] Univers 16:45:00 16:48:05 , LUCAS ity [facility] 2021-11-03 2021-11-03 Telephone YVETTE Gonzales [id number] Univers 00:00:00 00:00:00 Jenna AUSTIN 350.1.13.10 it y of HOSPITAL [id number] Fabio as [id number] [address] 2021-11-03 2021-11-03 Telephone Nurse, Dmitriy [facility] [id number] Univers 00:00:00 00:00:00 Db Urgent HEALTH 350.1.13.10 ity of Care [place] 4.2.7.2.686 Fabio as VERITO?BLEA [id number] [address] OFFICE [facility] 2021-11-02 2021-11-02 Outpatient R KAYLI [facility] [id number] Univers 14:00:00 14:32:44 BREE ity o f [facility] 2021-11-02 2021-11-02 Urgent [facility] [id number] Univers 14:00:00 14:20:00 Care Bree HEALTH 350.1.13.10 i ty of [place] 4.2.7.2.686 Fabio as VERTIO?BLEA [id number] [address] OFFICE [facility] 2021-06-05 2021-06-05 Telephone YVETTE Medina [id number] Univers 00:00:00 00:00:00 Gabriella A[place]IN 350.1.13.10 i ty of HOSPITAL 4.2.7.2.686 Fabio as [id number] [address] 2021-06-04 2021-06-04 Laboratory Only, Ang Db Test [facility] [id number] [id number] Univers 18:00:00 18:15:00 Only Philip Hanna [facility] 350.1.13.10 ity of [place] 4.2.7.2.686 Fabio as VERITO?BLEA [phone] [address] OFFICE [facility] 2021-06-04 2021-06-04 Outpatient R PHILIP [facility] [id number] Univers 18:00:00 17:58:01 HANNA ity of [facility] 2020-03-09 2020-03-09 Outpatient SIFODETTE Urban [facility] [id number] [place] 00:00:00 00:00:[address] 2020-02-17 2020-02-17 Outpatient SIFODETTE Urban [facility] [id number] [place] 00:00:00 00:00:[address] 2020-01-19 2020-01-19 Outpatient SIFODETTE Urban [facility] [id number] [place] 00:00:00 00:00:00 [address] 2020-01-19 2020-01-19 Outpatient SIFODETTE Urban [facility] [id number] [place] 00:00:00 00:00:00 [address] 2020-01-19 2020-01-19 Outpatient SIFODETTE Urban [facility] [id number] [place] 00:00:00 00:00:00 [address] 2020-01-19 2020-01-19 Outpatient SIFFODETTE [facility] [id number] [place] 00:00:00 00:00:00 [address] 2019-12-22 2019-12-22 [facility] [id number] 15:17:29 15:32:29 Visit Coral [facility] [id number] Surgical 4.2.7.2.686 Specialti [phone] [address] [place] 2019-12-22 2019-12-22 [facility] [id number] Univers 15:15:00 15:15:00 [facility] 2019-12-22 2019-12-22 Letter [facility] [id number] 00:00:00 00:00:00 (Out) [facility] [id number] Surgical 4.2.7.2.686 Specialti [phone] [address] 2019-11-21 2019-11-21 Outpatient Dil[facility] [id number] Univers 11:00:00 11:00:00 [facility] 2019-11-13 2019-11-13 Office Coral Pelletier [facility] [id number] Univers 15:09:13 15:24:13 Visit Nirav Moyer [facility] [id number] ity of Surgical 4.2.7.2.686 Fabio as Specialti [phone] Ok dical es 198 [facility] 2019-11-13 2019-11-13 Outpatient [facility] [id number] Univers 15:15:00 15:15:00 NIRAV [facility] Results Test Description Test Time Test Comments Results Result Comments Source POCT MOLECULAR FLU 2021-11-02 19:26:13 Test Item Value Reference Range Interpretation Comme nts POCT Molecular FluA (test code = 23783-6) Negative Negative POCT Molecular FluB (test code = 13302-6) Negative Negative Lab Interpretation (test code = 38054-5) Normal [facility]
[2022-08-06 02:51] LABS: Absolute Lymphocytes (CBC) 3.6 K/uL (0.7-4.9); Hematocrit 40.4 % (36.0-45.0); Lymphocytes % 46.6 % (15.3-44.8); MCV 79.6 fL (80-100); MPV 8.1 fL (7.6-11.3); RBC Red Blood Cell Count 5.08 M/uL (3.86-4.86)
[2022-08-06 03:10] LABS: Albumin 3.5 g/dL (3.4-5.0); Bilirubin Total 0.2 mg/dL (0.2-1.0); Potassium 3.6 mEq/L (3.5-5.1); Protein, Total 8.2 g/dL (6.4-8.2)
--- NOTE | 2022-08-06 05:11 | EDPHYS ---
Physician Documentation [facility] Name: Mami Ziegler Age: 51 yrs Sex: Female : 1970 Arrival Date: 08/06/2022 Time: 02:26 Bed 7 Private MD: ED Physician Jonhny Faith HPI: 08/06 04:04 This 51 yrs old Female presents to ER via Ambulatory with complaints of Fall Injury, ms3 Left Side Pain. 04:04 51-year-old female presents for left upper abdominal pain that radiates to her back. ms3 Patient states pain is a 9/10 and described as tight/cramping. Patient states pain becomes worse with deep breathing. Patient states yesterday she sneezed and the pain improved, however it returned.. Historical: - Allergies: 02:45 No Known Allergies; kl - PMHx: 02:45 Diabetes - NIDDM; Hypertension; Hypothyroidism; kl - Immunization history:: Adult Immunizations up to date. - Social history:: Smoking status: Patient denies any tobacco usage or history of. ROS: 04:04 Constitutional: Negative for fever, and chills. Neck: Negative for injury, pain, and ms3 swelling, Cardiovascular: Negative for chest pain, and palpitations. Respiratory: Negative for shortness of breath, cough, wheezing, and pleuritic chest pain. 04:04 MS/Extremity: Negative for injury and deformity, Skin: Negative for injury, rash, and discoloration. 04:04 Abdomen/GI: Positive for abdominal pain. 04:04 All other systems are negative. Exam: 04:04 Constitutional: This is a well developed, well nourished patient who is awake, alert, ms3 and in no acute distress. Head/Face: Normocephalic, atraumatic. Neck: Trachea midline, no cervical lymphadenopathy. Supple, full range of motion without nuchal rigidity, or vertebral point tenderness. No Meningismus. Chest/axilla: Normal chest wall appearance and motion. Nontender with no deformity. Cardiovascular: Regular rate and rhythm with a normal S1 and S2. No gallops, murmurs, or rubs. Normal PMI, no JVD. No pulse deficits. Respiratory: Lungs have equal breath sounds bilaterally, clear to auscultation and percussion. No rales, rhonchi or wheezes noted. No increased work of breathing, no retractions or nasal flaring. 04:04 Abdomen/GI: Inspection: abdomen appears normal, Bowel sounds: normal, Palpation: moderate abdominal tenderness, in the left upper quadrant. Vital Signs: 02:43 BP 166 / 91; Pulse 88; Resp 16; Temp 98.7(O); Pulse Ox 98% on R/A; Weight 95.25 kg; kl Height 5 ft. 5 in. ; Pain 9/10; 02:43 Body Mass Index 34.95 (95.25 kg, 165.1 cm) kl 02:43 Pain Scale: Adult kl MDM: 02:33 Patient medically screened. ms3 04:04 Differential diagnosis: Pancreatitis versus gastritis versus bowel obstruction. ms3 08/06 02:33 Order name: Labs collected and sent; Complete Time: 02:53 ms3 08/06 02:33 Order name: IV Saline Lock; Complete Time: 02:53 ms3 08/06 02:33 Order name: CBC with Diff; Complete Time: 03:14 ms3 08/06 02:33 Order name: CMP; Complete Time: 03:14 ms3 08/06 02:33 Order name: Lipase; Complete Time: 03:14 ms3 08/06 02:33 Order name: CT Abd/Pelvis - IV Contrast Only ms3 Administered Medications: No medications were administered Disposition Summary: 08/06/22 05:10 Discharge Ordered Location: Home ms3 Condition: Stable ms3 Diagnosis - Abdominal pain, Generalized ms3 Followup: ms3 - With: Anson Stratton DO - When: 2 - 3 days - Reason: Recheck today's complaints Discharge Instructions: - Discharge Summary Sheet ms3 - Abdominal Pain, Adult ms3 Forms: - Medication Reconciliation Form ms3 - Thank You Letter ms3 - Antibiotic Education ms3 - Prescription Opioid Use ms3 Signatures: Dispatcher [employer] Mami Malcolm RN RN Johnny Bustamante DO DO ms3
--- NOTE | 2022-08-06 05:11 | ER ---
Nurse's Notes [facility] Name: Mami Ziegler Age: 51 yrs Sex: Female : 1970 Arrival Date: 08/06/2022 Time: 02:26 Bed 7 Private MD: Diagnosis: Abdominal pain, Generalized Presentation: 08/06 02:43 Chief complaint: Patient states: right upper quadrant side pain since Sunday kl intermittent. Coronavirus screen: Vaccine status: Patient reports receiving the 2nd dose of the covid vaccine. Initial Sepsis Screen: Does the patient meet any 2 criteria? No. Patient's initial sepsis screen is negative. Does the patient have a suspected source of infection? No. Patient's initial sepsis screen is negative. Risk Assessment: Do you want to hurt yourself or someone else? Patient reports no desire to harm self or others. 02:43 Method Of Arrival: Ambulatory kl 02:43 Acuity: FRANK 3 kl Triage Assessment: 02:45 General: Appears distressed, uncomfortable, Behavior is cooperative. Pain: Complains of kl pain in anterior aspect of right lateral abdomen and right upper quadrant Pain currently is 9 out of 10 on a pain scale. Quality of pain is described as crampy, radiating, sharp. Historical: - Allergies: 02:45 No Known Allergies; kl - PMHx: 02:45 Diabetes - NIDDM; Hypertension; Hypothyroidism; kl - Immunization history:: Adult Immunizations up to date. - Social history:: Smoking status: Patient denies any tobacco usage or history of. Screenin:45 [facility] ED Fall Risk Assessment (Adult) History of falling in the last 3 months, jb4 including since admission No falls in past 3 months (0 pts) Confusion or Disorientation No (0 pts) Score/Fall Risk Level 0 - 2 = Low Risk Oriented to surroundings, Maintained a safe environment. Abuse screen: Denies threats or abuse. Nutritional screening: No deficits noted. Tuberculosis screening: No symptoms or risk factors identified. Assessment: 02:45 General: Appears in no apparent distress. comfortable, Behavior is calm, cooperative, jb4 appropriate for age. Pain: Complains of pain in Left ribs Pain does not radiate. Pain currently is 8 out of 10 on a pain scale. Neuro: Level of Consciousness is awake, alert, obeys commands, Oriented to person, place, time, situation. Cardiovascular: Patient's skin is warm and dry. Respiratory: Airway is patent Respiratory effort is even, unlabored, Respiratory pattern is regular, symmetrical. GI: Abdomen is non-distended, obese. : No signs and/or symptoms were reported regarding the genitourinary system. EENT: No signs and/or symptoms were reported regarding the EENT system. Derm: Skin is intact, Skin is pink, warm \T\ dry. Musculoskeletal: Circulation, motion, and sensation intact. Range of motion: intact in all extremities. Vital Signs: 02:43 BP 166 / 91; Pulse 88; Resp 16; Temp 98.7(O); Pulse Ox 98% on R/A; Weight 95.25 kg; kl Height 5 ft. 5 in. ; Pain 9/10; 02:43 Body Mass Index 34.95 (95.25 kg, 165.1 cm) 02:43 Pain Scale: Adult ED Course: 02:26 Patient arrived in ED. jj6 02:29 Johnny Faith DO is Attending Physician. ms3 02:36 Tonio Gardiner, RN is Primary Nurse. jb4 02:45 Triage completed. 02:45 Initial lab(s) drawn, by ar, sent to lab. Inserted saline lock: 18 gauge in right jb4 forearm, using aseptic technique. Blood collected. 02:45 Patient has correct armband on for positive identification. Bed in low position. Call jb4 light in reach. Side rails up X 1. Client placed on continuous cardiac and pulse oximetry monitoring. NIBP monitoring applied. 03:54 CT Abd/Pelvis - IV Contrast Only In Process Unspecified. EDMS 05:10 Anson Stratton DO is Referral Physician. ms3 Administered Medications: No medications were administered Outcome: 05:10 Discharge ordered by . ms3 Signatures: Dispatcher [employer] EDMS Mami العراقي RN RN kl Bryson, James, RN RN jb4 Sims, Marcus, DO DO ms3 Laura Lagos jj6
[2022-08-06 06:06] VITALS: BP 140/74; TEMP 98.2; O2SAT 98
--- NOTE | 2022-08-07 12:44 | RAD REPORT ---
EXAM DESCRIPTION: CT - Abdomen Pelvis W Contrast - 08/06/2022 6:22 am CLINICAL HISTORY: 51 years Female ABD PAIN COMPARISON: None TECHNIQUE: CT of the abdomen and pelvis with intravenous contrast. All CT scans at this facility use dose modulation, iterative reconstruction, and/or weight based dosi ng when appropriate to reduce radiation dose to as low as reasonably achievable. FINDINGS: Lower thorax: Bibasilar atelectasis. Abdomen: Stomach: Within normal limits Liver: No focal lesions. Hepatic steatosis. No intrahepatic ductal distention. Gallbladder: Nondistended Pancreas: Within normal limits Spleen: Within normal limits Right kidney: No hydronephrosis. No focal lesion. Left kidney: Located in the pelvis with abnormal rotation. No focal lesion. No hydronephrosis. Adrenal glands: Within normal limits Vascular structures: Atherosclerosis of the abdominal aorta. Nodes: No lymphadenopathy by size criteria Pelvis: Small bowel: No significant distention. Appendix: Within normal limits Colon: No distention or acute pericolonic edema. Peritoneum: No free intraperitoneal fluid or air. Bones: No acute bone findings. Bladder: Unremarkable. Reproductive organs: No acute findings. Soft tissues: Small fat-containing and fluid containing umbilical hernia. IMPRESSION: 1. No acute abdominopelvic findings. 2. Hepatic steatosis. 3. Incidentally noted left renal ectopia as above. Electronically signed by: Rikki Noguera MD 08/06/2022 4:38 AM CDT Due to temporary technical issues with the PACS/Fluency reporting system, reports are being signed by the in house radiologists without review as a courtesy to insure prompt reporting. The interpreting radiologist is fully responsible for the content of the report.
== END 2022-08-06 05:26 | disposition home or self-care (01) ==
LOC: ER 02:25
DX: R10.84 Generalized abdominal pain (principal); E11.8 Type 2 diabetes mellitus with unspecified complications; I10 Essential (primary) hypertension; E03.9 Hypothyroidism, unspecified
CPT/HCPCS: 85025; 36415; 83690; 80053; 74177; 99284; Q9967

== ENCOUNTER 2023-04-21 20:30 | Emergency (ER) | payer BC ==
--- OUTSIDE RECORDS SUMMARY | 2023-04-21 20:35 | XMS REPORT | Continuity of Care Document ---
:1970 Author Organization [facility] t Address [address] [place] [address] Care Team Providers Name Role Phone Gilmar Olson MD, Marco Primary Care Physician [phone] Hanna Martinez Attending Clinician Unknown, Attending Attending Clinician Unavailable HANNA PALACIOS Attending Clinician Unavailable Sol RAMIREZ, Jose Radford Attending Clinician Nurse, Dmitri[facility] Attending Clinician Unavailable JAY MATHIS Attending Clinician Unavailable ADRIANO CORTEZ Attending Clinician Unavailable Adriano Cortez MD Attending Clinician STAS العلي III Attending Clinician Unavailable King FREDA MD, James C Attending Clinician Doctor Unassigned, [place] Attending Clinician Unavailable Marco Schafer Attending Clinician Tammy Castro Attending Clinician TAMMY CARRERA Attending Clinician Unavailable Carolina Owen RN Attending Clinician Unavailable Only, Dmitriy Poole Test Attending Clinician Unavailable Tamera RAMIREZ, Lucas Attending Clinician LUCAS ROSENBERG Attending Clinician Unavailable Jenna Gonzales RN Attending Clinician Unavailable BREE MILAN Attending Clinician Unavailable Bree Robins Attending Clinician Gabriella Medina RN Attending Clinician Unavailable ODETTE PERDOMO Attending Clinician Unavailable Coral Oneil Attending Clinician CORAL PELLETIER Attending Clinician Unavailable Nirav Moyer MD Attending Clinician NIRAV MOYER Attending Clinician Unavailable Payers Payer Name Policy Type Policy Number Effective Date Expiration Date S ource Problems Condition Condition Condition Status Onset Resolution Last Treating Co mments Source Name Details Category Date Date Treatment Clinician Date TFCC TFCC Disease Active [facility] (triangula (triangula 12-07 st r r 00:00: Hospita fibrocarti fibrocarti 00 l angela angela complex) complex) injury, injury, left, left, initial initial encounter encounter No known No known Disease Unive rs active active ity of problems problems [facility] Allergies, Adverse Reactions, Alerts Allergy Allergy Status [...] Active Univers ALLERGIE Class ity of S [facility] NO KNOWN Allergy Active [facility] Family History Family Member Diagnosis Comments Start Date Stop Date Source Maternal grandmother Cancer [facility] Natural mother Heart disease [facility] Natural sister Diabetes [facility] Natural son Heart disease [facility] Social History Social Habit Start Date Stop Date Quantity Comments Source Gender identity Universit y [facility] Sexual orientation [facility] Exposure to 2022-08-15 2022-08-25 Not sure University of SARS-CoV-2 (event) 00:00:00 15:27:00 [facility] Tobacco use and 2022-08-08 2022-08-08 [facility] exposure 00:00:00 00:00:00 tobacco non-user [facility] Alcohol intake 2022-08-08 2022-08-08 [facility] (finding[facility] History of Social 2022-08-08 2022-08-08 [facility] function 00:00:00 00:00:00 [facility] Center Sex Ass[birth year] At [birth year] ROGER Zamans 00:00:00 00:00:00 [facility] Center Smoking Status Start Date Stop Date Source Never smoked tobacco [facility] Medications Ordered Filled Start Stop Current Ordering Indication Dosage Frequency Signature Comments Components Source Medication Medication Date Date Medication? Clinician (SIG) Name Name famotidine Yes 20mg Take 1 [facility] (PEPCID) 20 3-21 tablet (20 Farzaneh kes MG tablet 00:00: mg total) Med ical 00 by mouth 2 Center (two) times daily as needed for Heartburn. dicyclomine No 20mg Take [address] (BENTYL) 20 3-21 03-20 tablet (20 L ukes mg tablet 00:00: 23:59 mg total) Me dical 00 :00 by mouth Center every 6 (six) hours as needed (Abdominal cramping). rizatriptan Yes [id number] 5mg Take 1 Univers 5 mg 3-01 tablet by ity of [place] 00 needed for Med ical Migraine. Branch May repeat in 2 hours if needed rizatriptan 2022-0 Yes [id number] 5mg Take 1 Univers 5 mg 3-01 tablet by ity of disintegrat [place]: [place] 00 needed for Med ical Migraine. Branch May repeat in 2 hours if needed rizatriptan 2022-0 Yes [id number] 5mg Take 1 Univers 5 mg 3-01 tablet by ity of disintegrat [place]: [place] 00 needed for Med ical Migraine. Branch May repeat in 2 hours if needed rizatriptan 2022-0 Yes [id number] 5mg Take 1 Univers 5 mg 3-01 tablet by ity of disintegrat [place]: [place] 00 needed for Med ical Migraine. Branch May repeat in 2 hours if needed ondansetron 2022- No [id number] 4mg Take 1 Univers 4 mg -06 -12 tablet by ity of disintegrat 00:00: 05:59 [place] :00 every 8 Medica l (eight) Branch hours as needed for Nausea and Vomiting (N/V) for up to 5 days. losartan 50 2021-0 Yes [id number] 50mg Take 1 Univers mg tablet 6-15 tablet by ity o f 00:00: mouth [place] 00 daily. Medical Branch losartan 50 2021-0 Yes [id number] 50mg Take 1 Univers mg tablet 6-15 tablet by ity o f 00:00: mouth [place] 00 daily. Medical Branch losartan 50 2021-0 Yes [id number] 50mg Take 1 Univers mg tablet 6-15 tablet by ity o f 00:00: mouth [place] 00 daily. Medical Branch losartan 50 2021-0 Yes [id number] 50mg Take 1 Univers mg tablet 6-15 tablet by ity o f 00:00: mouth [place] 00 daily. Medical Branch losartan 50 2021-0 Yes [id number] 50mg Take 1 Univers mg tablet 6-15 tablet by ity o f 00:00: mouth [place] 00 daily. Medical Branch losartan 50 2021-0 Yes [id number] 50mg Take 1 Univers mg tablet 6-15 tablet by ity o f 00:00: mouth [place] 00 daily. Medical Branch losartan 50 2021-0 Yes [id number] 50mg Take 1 Univers mg tablet 6-15 tablet by ity o f 00:00: mouth [place] 00 daily. Medical Branch losartan 50 2021-0 Yes [id number] 50mg Take 1 Univers mg tablet 6-15 tablet by ity o f 00:00: mouth [place] 00 daily. Medical Branch losartan 50 2021-0 Yes [id number] 50mg Take 1 Univers mg tablet 6-15 tablet by ity o f 00:00: mouth [place] 00 daily. Medical Branch losartan 50 2021-0 Yes [id number] 50mg Take 1 Univers mg tablet 6-15 tablet by ity o f 00:00: mouth [place] 00 daily. Medical Branch losartan 50 2021-0 Yes [id number] 50mg Take 1 Univers mg tablet 6-15 tablet by ity o f 00:00: mouth [place] 00 daily. Medical Branch losartan 50 2021-0 Yes [id number] 50mg Take 1 Univers mg tablet 6-15 tablet by ity o f 00:00: mouth [place] 00 daily. Medical Branch meloxicam 2019-05 Yes 15mg QD Take 15 mg Me thodi (MOBIC) 15 0-[address] mg tablet 13:05: daily. Hospit a 04 l meloxicam 2019-05 Yes 15mg QD Take 15 [...] 00:00: [place]BCUTANEO [place] (18 mg/3 00 BLACNA DAILY Medic al mL) FOR THE Branch [...] 1.8 MG DAILY FOR 30 DAYS VICTOZA 2019-0 Yes INJECT 0.6 Univ ers 3-RENNY 0.6 6-21 MG ity of mg/0.1 mL 00:00: [place]O [place] (18 mg/3 00 BLANCA DAILY Medic al mL) FOR THE Branch injection FIRST WEEK THEN INJECT 1.2 MG THE SECOND WEEK THEN 1.8 MG DAILY FOR 30 DAYS VICTOZA 2019-0 Yes INJECT 0.6 Univ ers 3-RENNY 0.6 6-21 MG ity of mg/0.1 mL 00:00: [place] (18 mg/3 00 BLANCA DAILY Medic al mL) FOR THE Branch injection FIRST WEEK THEN INJECT 1.2 MG THE SECOND WEEK THEN 1.8 MG DAILY FOR 30 DAYS SUMAtriptan 2019-0 Yes TAKE 1 Univ [...] EMPTY Branch STOMACH IN THE MORNING EUTHYROX 2019-0 Yes TAKE 1 Univers 100 mcg 5-13 [...] tablet AN EMPTY STOMACH IN THE MORNING levothyroxi 2020-0 Yes TAKE 1 Meth [place] 5-[address] (Euthyrox) 00:00: MOUTH ONCE H ospita 100 mcg 00 DAILY ON l tablet AN EMPTY STOMACH IN THE MORNING atorvastati 2020-0 Yes TAKE 1 Univ ers n 20 mg 4-11 TABLET BY ity of tablet 00:00: MOUTH [place] 00 EVERY DAY Medical AT BEDTIME Branch FOR 30 DAYS atorvastati 2020-0 Yes TAKE 1 Univ ers n 20 mg 4-11 TABLET BY ity of tablet 00:00: MOUTH [place] 00 EVERY DAY Medical AT BEDTIME [place] FOR 30 DAYS atorvastati 2020-0 Yes TAKE 1 Univ ers n 20 mg 4-11 TABLET BY ity of tablet 00:00: MOUTH 00 EVERY DAY Medical AT BEDTIME [place] FOR 30 DAYS atorvastati 2020-0 Yes TAKE 1 Univ ers n 20 mg 4-11 TABLET BY ity of tablet 00:00: MOUTH [place] 00 EVERY DAY Medical AT BEDTIME [place] FOR 30 DAYS atorvastati 2020-0 Yes TAKE 1 Univ ers n 20 mg 4-11 TABLET BY ity of tablet 00:00: MOUTH [place] 00 EVERY DAY Medical AT BEDTIME [place] FOR 30 DAYS atorvastati 2020-0 Yes TAKE 1 Univ ers n 20 mg 4-11 TABLET BY ity of tablet 00:00: MOUTH [place] 00 EVERY DAY Medical AT BEDTIME [place] FOR 30 DAYS atorvastati 2020-0 Yes TAKE 1 Univ ers n 20 mg 4-11 TABLET BY ity of tablet 00:00: MOUTH [place] 00 EVERY DAY Medical AT BEDTIME [place] FOR 30 DAYS atorvastati 2020-0 Yes TAKE 1 Univ ers n 20 mg 4-11 TABLET BY ity of tablet 00:00: MOUTH [place] 00 EVERY DAY Medical AT BEDTIME [place] FOR 30 DAYS atorvastati 2020-0 Yes TAKE 1 Univ ers n 20 mg 4-11 TABLET BY ity of tablet 00:00: MOUTH [place] 00 EVERY DAY Medical AT BEDTIME Branch FOR 30 DAYS atorvastati 2020-0 Yes TAKE 1 Univ ers n 20 mg 4-11 TABLET BY ity of tablet 00:00: MOUTH [place] 00 EVERY DAY Medical AT BEDTIME Branch FOR 30 DAYS atorvastati 2020-0 Yes TAKE 1 Univ ers n 20 mg 4-11 TABLET BY ity of tablet 00:00: MOUTH [place] 00 EVERY DAY Medical AT BEDTIME Branch FOR 30 DAYS atorvastati 2020-0 Yes TAKE 1 Univ ers n 20 mg 4-11 TABLET BY ity of tablet 00:00: MOUTH [place] 00 EVERY DAY Medical AT BEDTIME [place] FOR 30 DAYS atorvastati 2020-0 Yes TAKE 1 Univ ers n 20 mg 4-11 TABLET BY ity of tablet 00:00: MOUTH [place] 00 EVERY DAY Medical AT BEDTIME [place] FOR 30 DAYS atorvastati 2020-0 Yes TAKE 1 Univ ers n 20 mg 4-11 TABLET BY ity of tablet 00:00: MOUTH [place] 00 EVERY DAY Medical AT BEDTIME [place] FOR 30 DAYS atorvastati 2020-0 Yes TAKE 1 Univ ers n 20 mg 4-11 TABLET BY ity of tablet 00:00: MOUTH [place] 00 EVERY DAY Medical AT BEDTIME [place] FOR 30 DAYS losartan 50 2020-0 Yes [...] tablet 00 daily. Medical Branch losartan 50 2019-0 2021- No TAKE 1 Uni vers mg tablet 4-06 06-15 TABLET BY ity of 00:00: 00:00 MOUTH ONCE [place] 00 :00 DAILY FOR Medical 90 DAYS Branch losartan 2014-05 Yes [facility] (COZAAR) 50 2-10 st MG tablet 00:00: Hospita 00 l losartan 2014-05 Yes [facility] (COZAAR) 50 2-10 st MG tablet 00:00: Hospita 00 l metFORMIN Yes [facility] (GLUCOPHAGE 8-03 st ) 1,000 mg 00:00: Hospita tablet 00 l metFORMIN Yes [facility] (GLUCOPHAGE 803 st ) 1,000 mg 00:00: Hospita tablet 00 l Vital Signs Vital Name Observation Time Observation Value Comments Source Systolic blood 2022-12-24 21:29:00 128 mm[Hg] Univer sity of [facility] Diastolic blood 2022-12-24 21:29:00 79 mm[Hg] Unive rsity of [facility] Heart rate 2022-12-24 21:29:00 95 /min Universi ty of [facility] Body temperature 2022-12-24 21:29:00 37.28 Ember Univ ersity of [facility] Respiratory rate 2022-12-24 21:29:00 18 /min Univ ersity of [facility] Body height 2022-12-24 21:29:00 165.1 cm Universi ty of [facility] Body weight 2022-12-24 21:29:00 84.596 kg [facility]i ty [facility] BMI 2022-12-24 21:29:00 31.04 kg/m2 Universi ty [facility] Oxygen saturation in 2022-12-24 21:29:00 97 /min University of Arterial blood by [place] [employer] Pulse oximetry Branch Systolic blood 2022-08-25 20:37:00 146 mm[Hg] Univer sity of [facility] Diastolic blood 2022-08-25 20:37:00 86 mm[Hg] Unive rsity of [facility] Heart rate 2022-08-25 20:37:00 99 /min Universi ty of [facility] Body temperature 2022-08-25 20:37:00 36.67 Ember Univ ersity [facility] Respiratory rate 2022-08-25 20:37:00 18 /min Univ ersity of [facility] Body height 2022-08-25 20:37:00 165.1 cm [facility]i ty [facility] Body weight 2022-08-25 20:37:00 95.029 kg [facility]i [facility] BMI 2022-08-25 20:37:00 34.86 kg/m2 [facility]i ty [facility] Oxygen saturation in 2022-08-25 20:37:00 98 /min University of Arterial blood by [employer] (EBTH) moshe Pulse oximetry Branch HEIGHT 2022-08-08 16:21:00 165.1 cm WEIGHT 2022-08-08 16:21:00 95.255 kg HEIGHT 2022-08-08 16:21:00 165.1 cm WEIGHT 2022-08-08 16:21:00 95.255 kg HEIGHT 2022-08-08 16:21:00 165.1 cm WEIGHT 2022-08-08 16:21:00 95.255 kg Systolic blood 2022-07-19 21:01:00 129 mm[Hg] Univer sity of pressure [facility] Diastolic blood 2022-07-19 21:01:00 89 mm[Hg] Unive rsity of pressure [facility] Heart rate 2022-07-19 21:01:00 84 /min Universi ty of [facility] Body temperature 2022-07-19 21:01:00 36.94 Ember Univ ersity [facility] Respiratory rate 2022-07-19 21:01:00 16 /min Univ ersity of [facility] Body height 2022-07-19 21:01:00 165.1 cm [facility]i ty [facility] Body weight 2022-07-19 21:01:00 95.057 kg [facility] BMI 2022-07-19 21:01:00 34.87 kg/m2 [facility]i [facility] [place] Oxygen saturation in 2022-07-19 21:01:00 96 /min University Arterial blood by [facility] Pulse oximetry Branch Systolic blood 2022-05-26 20:08:00 138 mm[Hg] Univer sity of pressure [facility] Diastolic blood 2022-05-26 20:08:00 86 mm[Hg] Unive rsity of pressure [facility] Heart rate 2022-05-26 20:08:00 88 /min [facility]i ty [facility] [place] Body temperature 2022-05-26 20:08:00 36.67 Ember Univ ersity of [facility] Respiratory rate 2022-05-26 20:08:00 17 /min Univ ersity [facility] Body weight 2022-05-26 20:08:00 94.53 kg [facility]i [facility] BMI 2022-05-26 20:08:00 34.68 kg/m2 Universi ty of [facility] Oxygen saturation in 2022-05-26 20:08:00 98 /min University of Arterial blood by [facility] Pulse oximetry Branch Systolic blood 2021-11-02 19:11:00 152 mm[Hg] Univer sity of [facility] [place] Diastolic blood 2021-11-02 19:11:00 92 mm[Hg] Unive rsity of [facility] [place] Heart rate 2021-11-02 19:08:00 82 /min Universi ty of [facility] Body temperature 2021-11-02 19:08:00 36.67 Ember Univ ersity [facility] [place] Respiratory rate 2021-11-02 19:08:00 18 /min Univ ersity of [facility] [place] Body height 2021-11-02 19:08:00 165.1 cm Universi ty [facility] [place] Body weight 2021-11-02 19:08:00 96.026 kg [facility]i [facility] [place] BMI 2021-11-02 19:08:00 35.23 kg/m2 Universi ty of [facility] Oxygen saturation in 2021-11-02 19:08:00 96 /min University of Arterial blood by [facility] Pulse oximetry Branch Systolic blood 2019-11-13 20:13:00 119 mm[Hg] Univer sity of [facility] Diastolic blood 2019-11-13 20:13:00 74 mm[Hg] Unive rsity of [facility] Heart rate 2019-11-13 20:13:00 86 /min [facility]i ty [facility] Respiratory rate 2019-11-13 20:13:00 18 /min Univ ersity of [facility] Body height 2019-11-13 20:13:00 167.6 cm [facility]i ty [facility] Body weight 2019-11-13 20:13:00 89.812 kg [facility] BMI 2019-11-13 20:13:00 31.96 kg/m2 Universi ty of [facility] Systolic blood 2022-08-08 21:05:00 143 mm[Hg] [facility] Diastolic blood 2022-08-08 21:05:00 85 mm[facility]Hg] [facility] 2022-08-08 21:05:00 75 /min [facility] Body temperature 2022-08-08 21:05:00 36.78 Ember [facility] Respiratory rate 2022-08-08 21:05:00 17 /min [facility] Oxygen saturation in 2022-08-08 21:05:00 100 /min [facility] Arterial blood by Medical Ce nter Pulse oximetry Body height 2022-08-08 16:21:00 165.1 cm [facility] Body weight 2022-08-08 16:21:00 95.255 kg [facility] BMI 2022-08-08 16:21:00 34.95 kg/m2 [facility] Procedures Procedure Date / Time Performing Clinician Source Performed POCT MOLECULAR STREP 2022-12-24 22:00:00 Unknown, Attending [facility] POCT MOLECULAR FLU 2022-12-24 21:39:00 Unknown, Attending [facility] POCT SARS-COV-2 ANTIGEN 2022-12-24 21:38:00 Hanna [facility] (BINAX NOW) [facility] CTA CHEST FOR PULMONARY 2022-08-08 19:45:00 Diego, [facility] EMBOLUS Center CT ABDOMEN/PELVIS WITH IV 2022-08-08 19:45:00 Diego, [facility] CONTRAST [place] LACTIC ACID, VENOUS 2022-08-08 18:02:00 Diego, [facility] ED ECG INTERPRETATION 2022-08-08 17:59:46 Diego, [facility] CBC W/PLT COUNT & AUTO 2022-08-08 16:44:00 Diego, [facility] DIFFERENTIAL [place] COMPREHENSIVE METABOLIC 2022-08-08 16:44:00 Diego, [facility] PANEL Center HIGH SENSITIVITY TROPONIN 2022-08-08 16:44:00 Diego, [facility] I Center LIPASE 2022-08-08 16:44:00 Diego, [facility] CBC W/PLT COUNT & AUTO 2022-08-08 16:44:00 Diego, [facility] DIFFERENTIAL [place] ECG 12-LEAD 2022-08-08 16:42:51 Diego, [facility] ECG 12-LEAD 2022-08-08 16:42:51 Unknown, Hl7 Doctor [facility] EKG-SCANNED 2022-08-08 00:00:00 Provider, [facility] PATIENT FINANCIAL 2022-07-19 20:55:35 [facility] [place] [facility] CONSENT/REFUSAL FOR 2022-05-26 20:02:00 Doctor Unassigned, Unive [facility] DIAGNOSIS AND TREATMENT [place] [facility] POCT MOLECULAR FLU 2021-11-02 19:14:00 Bree [place] [facility] Plan of Care Planned Activity Planned Date Details Comments Source Future Scheduled 2023-08-09 Tobacco Cessation [facility] 00:00:00 Counseling and Screening [facility] (12+) [code = Tobacco Cessation Counseling and Screening (12+)] Future Scheduled 2023-04-21 Screening for malignant [facility] 10:20:36 neoplasm of colon Hospital (procedure) [code = 662769104] Future Scheduled 2023-04-21 Screening for malignant [facility] 10:20:36 neoplasm of colon Hospital (procedure) [code = 481747171] Future Scheduled 2023-04-21 Screening for malignant [facility] 10:20:36 neoplasm of colon Hospital (procedure) [code = 639449244] Future Scheduled 2023-04-21 COVID-19 VACCINE (#1) [facility] 10:20:36 [code = COVID-19 VACCINE Hos pital (#1)] Future Scheduled 2023-04-21 Screening for malignant [facility] 10:20:36 neoplasm of cervix Hospital (procedure) [code = 458586990] Future Scheduled 2023-04-21 BREAST CANCER SCREENING [facility] 10:20:36 [code = BREAST CANCER Hospit al SCREENING] Future Scheduled 2023-04-21 Screening for malignant [facility] 10:20:36 neoplasm of colon Hospital (procedure) [code = 400590101] Future Scheduled 2023-04-21 Screening for malignant [facility] 10:20:36 neoplasm of colon Hospital (procedure) [code = 360226419] Future Scheduled 2023-04-21 SHINGLES VACCINES (1 of [facility] 10:20:36 2) [code = SHINGLES Hospital VACCINES (1 of 2)] Future Scheduled 2023-04-21 INFLUENZA VACCINE (#1) [facility] Test 10:20:36 [code = INFLUENZA VACCINE Ho spital (#1)] Future Scheduled 2023-01-19 Influenza Vaccine (#1[facility] [code = Influenza Vaccine Me dical Center (#1)] Future Scheduled 2022-05-[address] [facility] Test 00:00:00 (12+) [code = DEPRESSION Med ical Center SCREENING (12+)] Future Scheduled 2022-05-07 COVID-19 VACCINE (#1) [facility] 11:39:05 [code = COVID-19 VACCINE Hos pital (#1)] Future Scheduled 2022-05-07 Hepatitis C screening [facility] Test 11:39:05 (procedure) [code = Hospital 395873344] Future Scheduled 2022-05-07 Screening for malignant [facility] 11:39:05 neoplasm of cervix Hospital (procedure) [code = 215886304] Future Scheduled 2022-05-07 BREAST CANCER SCREENING [facility] 11:39:05 [code = BREAST CANCER Hospit al SCREENING] Future Scheduled 2022-05-07 COLONOSCOPY SCREENING [facility] 11:39:05 [code = COLONOSCOPY Hospital SCREENING] Future Scheduled 2022-05-07 SHINGLES VACCINES (1 of [facility] 11:39:05 2) [code = SHINGLES Hospital VACCINES (1 of 2)] Future Scheduled 2022-05-07 INFLUENZA VACCINE [code = [facility] 11:39:05 INFLUENZA VACCINE] Hospital Future Scheduled 2018 SHINGLES VACCINES ([address] [facility] Test 00:00:00 2) [code = SHINGLES Medical Center VACCINES (1 of 2)] Future Scheduled 2013 Lipid panel (procedure) [facility] Test 00:00:00 [code = 88233764] Medical Ce nter Future Scheduled 1989 Screening for malignant [facility] Test 00:00:00 neoplasm of cervix Medical C enter (procedure) [code = 290229568] Future Scheduled 1987-11-23 DTAP/TDAP/TD VACCINES ([address] [facility] Test 00:00:00 - Tdap) [code = Medical Cent er DTAP/TDAP/TD VACCINES (1 - Tdap)] Future Scheduled 1986 HEPATITIS C [facility]CRE[facility]ING [facility] 00:[facility]00 [code = HEPATITIS C Medical Center SCREENING] Future Scheduled 1983-11-[address] [facility] 00:00:00 virus screening Medical Cent er (procedure) [code = 094824001] Future Scheduled 1969-05-25 COVID-19 VACCINE (#1) [facility] 00[facility]00 [code = COVID-19 VACCINE Med ical Center (#1)] Future Scheduled 1968 Screening for malignant [facility] Test 00:00:00 neoplasm of breast Medical C enter (procedure) [code = 399591311] Future Scheduled 1968 CT Colonography (combo) [facility] Test 00:00:00 [code = CT Colonography [facility] Center (combo)] Future Scheduled 1968 Screening for malignant [facility] Test 00:00:00 neoplasm of colon Medical Ce nter (procedure) [code = 575252458] Future Scheduled 1968 Screening for malignant [facility] Test 00:00:00 neoplasm of colon Medical Ce nter (procedure) [code = 248311246] Future Scheduled 1968 Screening for malignant [facility] Test 00:00:00 neoplasm of colon Medical Ce nter (procedure) [code = 830970135] Future Scheduled 1968 Screening for malignant [facility] Test 00:00:00 neoplasm of colon Medical Ce nter (procedure) [code = 749661072] Future Scheduled 1970 Sigmoidoscopy [code = [facility] S[facility]oscopy] Medical Cente r Encounters Start End Encounter Admission Attending Care Care Encounter Source Date/Time Date/Time Type Type Clinicians Facility Department ID 2022-12-24 2022-12-24 Urgent [place], Hanna [facility] [id number] [facility] 16:20:00 16:40:00 Care Unknown, Attending [id number] [facility] [id number] Fabio as VERITO?BLEA [id number] [address] MEDICAL OFFICE BUILDING 2022-12-242022-12-24 Outpatient Dilcia PALACIOS, [facility] [id number] Univers 16:20:00 16:20:00 HANNA [facility] 2022-09-20 2022-09-20 Outside Sol [facility] [id number] 00:00:00 00:00:00 Orders Jose Radford [facility] 2022-08-25 2022-08-25 Nurse Nurse, Dmitriy [facility] [id number] Univers 15:30:00 15:50:00 Visit Unknown, Attending HEALTH [id number] ity of [place] [id number] Fabio as VERITO?BLEA [id number] [address] MEDICAL OFFICE BUILDING 2022-08-25 2022-08-25 Outpatient Dilcia MATHIS, [facility] [id number] Univers 15:30:00 15:30:00 JAY [facility] 2022-08-08 2022-08-08 Emergency ER DIEGO, [facility] Emergency [id number] [facility] 16:27:00 21:06:00 2022-08-08 2022-08-08 Emergency Diego, Holdenf [facility] [id number] 16:27:00 21:06:00 [facility] 2022-08-08 2022-08-08 Orders [facility] [id number] [facility]00 Only [facility] 2022-08-08 2022-08-08 Travel [facility] [id number] [facility]00 [facility] 2022-07-19 2022-07-19 Outpatient Dilcia العلي III, [facility] [id number] Univers 15:20:00 15:49:10 STAS [facility] 2022-07-19 2022-07-19 Urgent Stas العلي [facility] 1.2.840.114 [id number] Univers 15:20:00 15:40:00 Care Unknown, Attending HEALTH 350.1.13.10 ity of [place] 4.2.7.2.686 Fabio as VERITO?BLEA [phone] [address] MEDICAL OFFICE [facility] 2022-07-19 2022-07-19 Orders Doctor YVETTE 1.2.840.114 [id number] Univers 00:00:00 00:00:00 Only Unassigned, NORMAN 350.1.13.10 ity of [place] [facility] 4.2.7.2.686 Fabio as [phone] [address] 2022-07-19 2022-07-19 Letter Gilmar [facility] 1.2.840.114 [id number] Univers 00:00:00 00:00:00 (Out) Marco HEALTH 350.1.13.10 ity of [place] 4.2.7.2.686 Fabio as VERITO?BLEA [id number] [address] [facility] 2022-05-26 2022-05-26 Urgent Tammy Carrera [facility] 1.2.840.11 [id number] Univers 14:00:00 14:20:00 Care Unknown, Attending HEALTH 350.1.13.10 ity of [place] 4.2.7.2.686 Fabio as VERITO?BLEA [id number] [address] [facility] 2022-05-26 2022-05-26 Outpatient R DEANDRE [facility] [id number] Univers 14:00:00 14:00:00 REENU ity of [facility] 2022-05-26 2022-05-26 Orders Doctor YVETTE 1.2.840.114 [id number] Univers 00:00:00 00:00:00 Only Unassigned, NORMAN 350.1.13.10 ity of [place] [facility] 4.2.7.2.686 Fabio as [id number] [facility] [address] [place] 2022-03-19 2022-03-19 Letter YVETTE Owen 1.2.840.114 [id number] Univers 00:00:00 00:00:00 (Out) Carolina Restrepo NORMAN 350.1.13.10 it y of HOSPITAL 4.2.7.2.686 Fabio as [phone] [facility] [address] [place] 2022-03-18 2022-03-18 Laboratory Only, Dmitriy Db Test [facility] 1.2.8 40.114 [id number] Univers 16:45:00 17:00:00 [facility] 350.1.13. 10 ity of [place] 4.2.7.2.686 Fabio as VERITO?BLEA [id number] [address] [facility] 2022-03-18 2022-03-18 Outpatient R [facility] [id number] Univers 16:45:00 16:48:05 , LUCAS ity [facility] 2021-11-03 2021-11-03 Telephone YVETTE Gonzales 1.2.364.301 [id number] Univers 00:00:00 00:00:00 Jenna AUSTIN 350.1.13.10 it y of HOSPITAL 4.2.7.2.686 Fabio as [phone] [address] 2021-11-03 2021-11-03 Telephone Dmitriy Hagen [facility] 1.2.840.114 [id number] Univers 00:00:00 00:00:00 Db Urgent HEALTH 350.1.13.10 ity of Care [place] 4.2.7.2.686 Fabio as VERITO?BLEA [id number] [address] [facility] 2021-11-02 2021-11-02 Outpatient R [facility] [id number] Univers 14:00:00 14:32:44 BREE hallman o f [facility] 2021-11-02 2021-11-02 Urgent [facility] 1.2.840.114 [id number] Univers 14:00:00 14:20:00 Care Bree HEALTH 350.1.13.10 i ty of [place] 4.2.7.2.686 Fabio as VERITO?BLEA [id number] [address] [facility] 2021-06-05 2021-06-05 Telephone YVETTE Medina [id number] [id number] Univers 00:00:00 00:00:00 Gabriella AUSTIN 350.1.13.10 i ty of [facility] 4.2.7.2.686 Fbaio as [id number] [address] 2021-06-04 2021-06-04 Laboratory Only, Ang Db Test [facility] 1.2.8 40.114 [id number] Univers 18:00:00 18:15:00 Only Hanna Palacios [facility] 350.1.13.[address] [facility] 4.2.7.2.686 Fabio as VERITO?BLEA [id number] Nm dical [address] MEDICAL OFFICE BUILDING 2021-06-04 2021-06-04 Outpatient R PHILIP [facility] [id number] Univers 18:00:00 17:58:01 HANNA [facility] 2020-03-09 2020-03-09 Outpatient SIFF, ODETTE [facility] 2100 [id number] [place] 00:00:00 00:00:00 371 [facility] i 2020-02-17 2020-02-17 Outpatient SIFF, ODETTE [facility] 2100 [id number] [place] 00:00:00 00:00:00 520 [facility] i 2020-01-19 2020-01-19 Outpatient SIFF, ODETTE [facility] 2100 [id number] [place] 00:00:00 00:00:00 114 Method i 2020-01-19 2020-01-19 Outpatient SIFF, [facility] 2100 [id number] [place] 00:00:00 00:00:00 542 Method i 2020-01-19 2020-01-19 Outpatient SIFF, ODETTE [facility] [id number] [place] 00:00:00 00:00:00 672 Method i 2020-01-19 2020-01-19 Outpatient SIFF, ODETTE [facility] [id number] [place] 00:00:00 00:00:00 896 Method i 2019-12-22 2019-12-22 Office [facility]M [facility] 1.2.840.114 [id number] 15:17:29 15:32:29 Visit [facility] 350.1.13.10 Surgical 4.2.7.2.686 Specialti [id number] es 198 [place] 2019-12-22 2019-12-22 Outpatient [facility] [id number] Univers 15:15:00 15:15:00 CORAL [facility] 2019-12-22 2019-12-22 Js [facility] 1.2.840.114 [id number] 00:00:00 00:00:00 (Out) Coral Castro [facility] 350.1.13.10 Surgical 4.2.7.2.686 Specialti [phone] es 198 [place] 2019-11-21 2019-11-21 Outpatient R [facility] [id number] Univers 11:00:00 11:00:00 [facility] 2019-11-13 2019-11-13 Office Coral Pelletier [facility] 1.2.840.114 [id number] Univers 15:09:13 15:24:13 Visit Nirav Moyer [facility].1.13.10 [facility] 4.2.7.2.686 Fabio as Specialti [phone] Nm dical 198 [facility] 2019-11-13 2019-11-13 Outpatient R [facility] [id number] Univers 15:15:00 15:15:00 [facility] Results Test Description Test Time Test Comments Results Result Comments Source POCT MOLECULAR STREP 2022-12-24 22:08:22 Test Item Value Reference Range Interpretation Comme nts POCT Molecular Strep (test code = 40449-4) Negative Negative Lab Interpretation (test code = 94723-2) Normal [facility] MOLECULAR [id number] 21:51:41 Test Item Value Reference Range Interpretation Comments POCT Molecular FluA (test code = Negative Negative 80996-4) POCT Molecular FluB (test code = Negative Negative 10447-8) Lab Interpretation (test code = Normal 41130-1) [facility] SARS-COV-2 ANTIGEN (BINAX NOW)2022-12-24 21:38:00 Test Item Value Reference Range Interpretation Comments POCT SARS-COV-2 ANTIGEN Not Detected Not Detected (test code = 41510-4) On board controls Yes acceptable with C Line (test code = 3574) JENNIFER (test code = JENNIFER) accurate development and interpretation of all internal controls Lab Interpretation Normal (test code = 99637-1) [facility] 12 [id number] 14:06:31Ventricular Rate 89 BPMAtrial Rate 89 BPMP-R Interval 176 msQRS Duration 94 msQ-T Interval 364 msQTCCalculation(Bazett) 442 msP [place] 31 degreesR [place] 2 degreesT [place] 71 degrees Normal sinus rhythmNormal ECGNo previous ECGs availableConfirmed by Conor Masterson ([id number]) on 08/09/2022 2:06:29 [facility], [id number] 20:41:00Reason for exam:->left sided painPain to left upper quadrant beginning 6 days ago. Pain radiates to right side and to back. Pain 10 out of 10. Sharp pressure.Is the patient ?->NoWhat is the patient's sedation requirement?->No Sedation [facility] MILLICENTDELONTANYA HERNANDEZ : 1970 Sex: FFINAL REPORT CT of the chest, abdomen, and pelvis, with contrast. History: PE suspected, high probABDOMINAL PAIN Comparison: None available. TECHNIQUE: Imaging was performed utilizing amultidetector helical scanner from the thoracic inlet to the proximal femurs after administration ofIV contrast. Coronal and sagittal reformations were obtained. The chest was scanned using pulmonary embolism protocol. The abdomen and pelvis was scanned using routine protocol. Dose modulation, iterative reconstruction, and/or weight-based adjustment of the mA/kV was utilized to reduce the radiation dose to as low as reasonably achievable. IV CONTRAST: 100 mL of Isovue 300ORAL CONTRAST: WaterRADIATION DOSE: Total DLP: 1473 mGy*cmCOMPLICATIONS: None Discussion: LINES/ TUBES: None. PULMONARY ARTERIES: No filling defect is identified within the pulmonary arteries to the segmental level. Main pulmonary artery measures 3.2 cm in diameter. LUNGS AND AIRWAYS: Bilateral lower lobes and lingula display dependent changes with mosaic pattern groundglass opacities. Central airways are patent. PLEURA: Trace left effusion. HEART AND MEDIASTINUM: The thyroid gland is normal. No mediastinal, hilar or axillary lymphadenopathy. The heart is normal in size. There is no pericardial effusion. Aorta and coronary arteries are unremarkable. HEPATOBILIARY: Hepatomegaly. Hepatic steatosis. No focal hepatic lesions. Gallbladder is unremarkable. No biliary ductal dilatation.SPLEEN: No splenomegaly.PANCREAS: No focal masses or ductal dilatation. ADRENALS: No adrenal nodules.KIDNEYS/URETERS: Left kidney is within the posterior pelvis. No hydronephrosis, stones, or masses.PELVIC ORGANS/BLADDER: Bladder is not well-distended, not well evaluated. Uterus is unremarkable. PERITONEUM/RETROPERITONEUM: No free air or fluid.LYMPH NODES: No lymphadenopathy.VESSELS: Unremarkable. GI TRACT: No distention or wall thickening. Appendix is seen, normal. BONES AND SOFT TISSUES: Unremarkable. IMPRESSION:1.No evidence of pulmonary embolism evaluated segmental level.2.Main pulmonary artery measures 3.2 cm, suggestive of pulmonary hyper tension.3.Bilateral lower lobe and lingula display dependent change with mosaic pattern groundglass opacity may represent component of air trapping.4.Trace left effusion.5.Hepatomegaly with hepatic steatosis.6.Left pelvic kidney. Signed: Oralia Collazo [facility] Verified Date/Time: 08/08/2022 20:41:16 CT, CHEST WITH IV CONTRAST- PE TEST [id number] 20:41:00Reason for exam:->ABDOMINAL PAINPain to left upper quadrant beginning 6 days ago. Pain radiates to right side and to back. Pain 10 out of 10. Sharp pressure.What is the patient's sedation requirement?- >No SedationIs the patient ?->No [facility]OM[facility] RICKS: 1970 Sex: FFINAL REPORT CT of the chest, abdomen, and pelvis, with contrast. History: PE suspected, high probABDOMINAL PAIN Comparison: None available. TECHNIQUE: Imaging was performed utilizing amultidetector helical scanner from the thoracic inlet to the proximal femurs after administration ofIV contrast. Coronal and sagittal reformations were obtained. The chest was scanned using pulmonary embolism protocol. The abdomen and pelvis was scanned using routine protocol. Dose modulation, iterative reconstruction, and/or weight-based adjustment of the mA/kV was utilized to reduce the radiation dose to as low as reasonably achievable. IV CONTRAST: 100 mL of Isovue 300ORAL CONTRAST: WaterRADIATION DOSE: Total DLP: 1473 mGy*cmCOMPLICATIONS: None Discussion: LINES/ TUBES: None. PULMONARY ARTERIES: No filling defect is identified within the pulmonary arteries to the segmental level. Main pulmonary artery measures 3.2 cm in diameter. LUNGS AND AIRWAYS: Bilateral lower lobes and lingula display dependent changes with mosaic pattern groundglass opacities. Central airways are patent. PLEURA: Trace left effusion. HEART AND MEDIASTINUM: The thyroid gland is normal. No mediastinal, hilar or axillary lymphadenopathy. The heart is normal in size. There is no pericardial effusion. Aorta and coronary arteries are unremarkable. HEPATOBILIARY: Hepatomegaly. Hepatic steatosis. No focal hepatic lesions. Gallbladder is unremarkable. No biliary ductal dilatation.SPLEEN: No splenomegaly.PANCREAS: No focal masses or ductal dilatation. ADRENALS: No adrenal nodules.KIDNEYS/URETERS: Left kidney is within the posterior pelvis. No hydronephrosis, stones, or masses.PELVIC ORGANS/BLADDER: Bladder is not well-distended, not well evaluated. Uterus is unremarkable. PERITONEUM/RETROPERITONEUM: No free air or fluid.LYMPH NODES: No lymphadenopathy.VESSELS: Unremarkable. GI TRACT: No distention or wall thickening. Appendix is seen, normal. BONES AND SOFT TISSUES: Unremarkable. IMPRESSION:1.No evidence of pulmonary embolism evaluated segmental level.2.Main pulmonary artery measures 3.2 cm, suggestive of pulmonary hyper tension.3.Bilateral lower lobe and lingula display dependent change with mosaic pattern groundglass opacity may represent component of air trapping.4.Trace left effusion.5.Hepatomegaly with hepatic steatosis.6.Left pelvic kidney. Signed: Oralia Collazo MDReport Verified Date/Time: 08/08/2022 20:41:16 CT ABDOMEN/PELVIS WITH IV [id number] 20:41:00FINAL REPORT CT of the chest, abdomen, and pelvis, with contrast. History: PE suspected, high probABDOMINAL PAIN Comparison: None available. TECHNIQUE: Imaging was performed utilizing a multidetector helical scanner from the thoracic inlet to the proximal femurs after administration of IV contrast. Coronal and sagittal reformations were obtained. The chest was scanned using pulmonary embolism protocol. The abdomen and pelvis was scanned using routine protocol. Dose modulation, iterative reconstruction, and/or weight-based adjustment of the mA/kV was utilized to reduce the radiation dose to as low as reasonably achievable. IV CONTRAST: 100 mL of Isovue 300ORAL CONTRAST: WaterRADIATION DOSE: Total DLP: 1473 mGy*cmCOMPLICATIONS: None Discussion: LINES/ TUBES: None. PULMONARY ARTERIES: No filling defect is identified within the pulmonary arteries to the segmental level. Main pulmonary artery measures 3.2 cm in diameter. LUNGS AND AIRWAYS: Bilateral lower lobes and lingula display dependent changes with mosaic pattern groundglass opacities. Central airways are patent. PLEURA: Trace left effusion. HEART AND MEDIASTINUM: The thyroid gland is normal. No mediastinal, hilar or axillary lymphadenopathy. The heart is normal in size. There is no pericardial effusion. Aorta and coronary arteries are unremarkable. HEPATOBILIARY: Hepatomegaly. Hepatic steatosis. No focal hepatic lesions. Gallbladder is unremarkable. No biliary ductal dilatation.SPLEEN: No splenomegaly.PANCREAS: No focal masses or ductal dilatation. ADRENALS: No adrenal nodules.KIDNEYS/URETERS: Left kidney is within the posterior pelvis. No hydronephrosis, stones, or masses.PELVIC ORGANS/BLADDER: Bladder is not well-distended, not well evaluated. Uterus is unremarkable. PERITONEUM/RETROPERITONEUM: No free air or fluid.LYMPH NODES: No lymphadenopathy.VESSELS: Unremarkable. GI TRACT: No distention or wall thickening.Appendix is seen, normal. BONES AND SOFT TISSUES: Unremarkable. IMPRESSION:1.No evidence of pulmonary embolism evaluated segmental level.2.Main pulmonary artery measures 3.2 cm, suggestive of pulmonary hypertension.3.Bilateral lower lobe and lingula display dependent change with mosaic pattern groundglass opacity may represent component of air trapping.4.Trace left effusion.5.Hepatomegaly with hepatic steatosis.6.Left pelvic kidney. Signed: Oralia Collazo [facility]eport Verified Date/Time: 08/08/2022 20:41:16 [facility] pulmonary [id number] 20:41:00FINAL REPORT CT of the chest, abdomen, and pelvis, with contrast. History: PE suspected, high probABDOMINAL PAIN Comparison: None available. TECHNIQUE: Imaging was performed utilizing a multidetector helical scanner from the thoracic inlet to the proximal femurs after administration of IV contrast. Coronal and sagittal reformations were obtained. The chest was scanned using pulmonary embolism protocol. The abdomen and pelvis was scanned using routine protocol. Dose modulation, iterative reconstruction, and/or weight-based adjustment of the mA/kV was utilized to reduce the radiation dose to as low as reasonably achievable. IV CONTRAST: 100 mL of Isovue 300ORAL CONTRAST: WaterRAD IATION DOSE: Total DLP: 1473 mGy*cmCOMPLICATIONS: None Discussion: LINES/ TUBES: None. PULMONARY ARTERIES: No filling defect is identified within the pulmonary arteries to the segmental level. Main pulmonary artery measures 3.2 cm in diameter. LUNGS AND AIRWAYS: Bilateral lower lobes and lingula display dependent changes with mosaic pattern groundglass opacities. Central airways are patent. PLEURA: Trace left effusion. HEART AND MEDIASTINUM: The thyroid gland is normal. No mediastinal, hilar or axillary lymphadenopathy. The heart is normal in size. There is no pericardial effusion. Aorta and coronary arteries are unremarkable. HEPATOBILIARY: Hepatomegaly. Hepatic steatosis. No focal hepatic lesions. Gallbladder is unremarkable. No biliary ductal dilatation.SPLEEN: No splenomegaly.PANCREAS: No focal masses or ductal dilatation. ADRENALS: No adrenal nodules.KIDNEYS/URETERS: Left kidney is within the posterior pelvis. No hydronephrosis, stones, or masses.PELVIC ORGANS/BLADDER: Bladder is not well-d istended, not well evaluated. Uterus is unremarkable. PERITONEUM/RETROPERITONEUM: No free air or fluid.LYMPH NODES: No lymphadenopathy.VESSELS: Unremarkable. GI TRACT: No distention or wall thickening.Appendix is seen, normal. BONES AND SOFT TISSUES: Unremarkable. IMPRESSION:1.No evidence of pulmonary embolism evaluated segmental level.2.Main pulmonary artery measures 3.2 cm, suggestive of pulmonary hypertension.3.Bilateral lower lobe and lingula display dependent change with mosaic pattern groundglass opacity may represent component of air trapping.4.Trace left effusion.5.Hepatomegaly with hepatic steatosis.6.Left pelvic kidney. Signed: Oralia Collazo MDR[facility]ort Verified Date/Time: 08/08/2022 20:41:16 [facility] HospitalLACTIC ACID, [id number] 18:31:40 Test Item Value Reference Range Interpretation Comments LACTATE BLOOD VENOUS 1.44 mmol/L 0.50-2.20 Specime n markedly (2) (BEAKER) (test hemolyzed code = 2872) Program Manager Slp ID - [id number] 18:05:34 Test Item Value Reference Range Interpretation Comments LIPASE (BEAKER) (test code = 749) 32 U/L 8-78 Program Manager Slp ID - ADMINECG/EKG [id number] 17:59:46Adriano Cortez MD 08/08/2022 8:52 PMECG/EKG Interpretation Date/Time: 08/08/2022 5:59 PMPerformed by: CLAUDETTE Bansaluthorized by: Adriano Cotrez MD The ECG was interpreted by ED physician. The ECG is interpretedas sinus rhythm. Rate is normal rate. Heart rate is 89 BPM.ST segments normal. T waves normal. [place] is normal. Clinical Impression: non-specific ECGECG reviewed and does not meet STEMI criteria. Patient tolerance: patient tolerated the procedure well with no immediate complicationsCHI [facility] Medical Center San DiegoHIGH SENSITIVITY TROPONIN [id number] 17:15:04 Test Item Value Reference Range Interpretation Comments HIGH SENSITIVITY TROPONIN I (test 5 pg/ml <=17 code = 9777705) Program Manager Slp ID - DBThe [employer]CHIT[employer] STAT High Sensitivity Troponin-I results should be used in conjunctionwith other diagnostic information such as ECG, clinical observations and information, and patient symptoms to aid in the diagnosis of CA.COMPREHENSIVE METABOLIC [id number] 17:13:41 Test Item Value Reference Range Interpretation Comments TOTAL PROTEIN 7.6 gm/dL 6.0-8.3 (BEAKER) (test code = 770) ALBUMIN (BEAKER) 4.0 g/dL 3.5-5.0 (test code = 1145) ALKALINE 95 U/L 40-150 PHOSPHATASE (BEAKER) (test code = 346) BILIRUBIN TOTAL 0.4 mg/dL 0.2-1.2 (BEAKER) (test code = 377) SODIUM (BEAKER) 136 meq/L 136-145 (test code = 381) POTASSIUM (BEAKER) 4.2 meq/L 3.5-5.1 (test code = 379) CHLORIDE (BEAKER) 103 meq/L 98-107 (test code = 382) CO2 (BEAKER) (test 26 meq/L 22-29 code = 355) BLOOD UREA 19 mg/dL 7-21 NITROGEN (BEAKER) (test code = 354) CREATININE 0.94 mg/dL 0.57-1.25 (BEAKER) (test code = 358) GLUCOSE RANDOM 272 mg/dL 70-105 H (BEAKER) (test code = 652) CALCIUM (BEAKER) 9.3 mg/dL 8.4-10.2 (test code = 697) AST (SGOT) 20 U/L 5-34 (BEAKER) (test code = 353) ALT (SGPT) 17 U/L 6-55 (BEAKER) (test code = 347) EGFR (BEAKER) 73 Interpretatio n of eGFR (test code = 1092) mL/min/1.[address] age Description sq m Result G1 Vianca l or high >=90 G2 Mildly decreased 60-89 G3a Mildl y to moderately 45-5 9 G3b Moderately to s everely 30-44 G4 Severl y decreased 15-29 G5 Kidney failure <15Reported eGF R is based on the CKD-EPI 2020 equation that d oes not use a race coefficientEsti mated GFR is not as accur ate as Creatinine Emely valenzuela in predicting glom erular filtration rate . Estimated GFR is not appl icable for dialysis patien ts Program Manager Slp ID - ADMINCBC W/PLT COUNT & AUTO [id number] 17:06:19 Test Item Value Reference Range Interpretation Comments WHITE BLOOD CELL COUNT (BEAKER) 11.0 K/ L 3.5-10.5 H (test code = 775) RED BLOOD CELL COUNT (BEAKER) 4.85 M/ L 3.93-5.22 (test code = 761) HEMOGLOBIN (BEAKER) (test code = 12.0 GM/DL 11.2-15.7 410) HEMATOCRIT (BEAKER) (test code = 38.6 % 34.1-44.9 411) MEAN CORPUSCULAR VOLUME (BEAKER) 80 fL 79-95 (test code = 753) MEAN CORPUSCULAR HEMOGLOBIN 24.7 pg 25.6-32.2 L (BEAKER) (test code = 751) MEAN CORPUSCULAR HEMOGLOBIN CONC 31.1 GM/DL 32.2-35.5 L (BEAKER) (test code = 752) RED CELL DISTRIBUTION WIDTH 15.1 % 11.7-14.4 H (BEAKER) (test code = 412) PLATELET COUNT (BEAKER) (test 308 K/CU MM 150-450 code = 756) MEAN PLATELET VOLUME (BEAKER) 9.8 fL 9.4-12.3 (test code = 754) NUCLEATED RED BLOOD CELLS 0 /100 WBC 0-0 (BEAKER) (test code = 413) NEUTROPHILS RELATIVE PERCENT 65 % (BEAKER) (test code = 429) LYMPHOCYTES RELATIVE PERCENT 23 % (BEAKER) (test code = 430) MONOCYTES RELATIVE PERCENT 8 % (BEAKER) (test code = 431) EOSINOPHILS RELATIVE PERCENT 3 % (BEAKER) (test code = 432) BASOPHILS RELATIVE PERCENT 1 % (BEAKER) (test code = 437) NEUTROPHILS ABSOLUTE COUNT 7.11 K/ L 1.56-6.13 H (BEAKER) (test code = 670) LYMPHOCYTES ABSOLUTE COUNT 2.53 K/ L 1.18-3.74 (BEAKER) (test code = 414) MONOCYTES ABSOLUTE COUNT (BEAKER) 0.89 K/ L 0.24-0.36 H (test code = 415) EOSINOPHILS ABSOLUTE COUNT 0.34 K/ L 0.04-0.36 (BEAKER) (test code = 416) BASOPHILS ABSOLUTE COUNT (BEAKER) 0.05 K/ L 0.01-0.08 (test code = 417) IMMATURE GRANULOCYTES-RELATIVE 0.30 % 0.00-1.00 PERCENT (BEAKER) (test code = 2801) [id number] 00:00:00Ordered by an unspecified provider.[facility] [id number] 19:26:13 Test Item Value Reference Range Interpretation Comments POCT Molecular FluA (test code = Negative Negative 50825-5) POCT Molecular FluB (test code = Negative Negative 04359-2) Lab Interpretation (test code = Normal 59148-0) [facility]
--- NOTE | 2023-04-21 22:02 | RAD REPORT ---
EXAM DESCRIPTION: CT - Abdomen Pelvis Wo Contrast - 04/21/2023 9:52 pm CLINICAL HISTORY: Abdominal pain. Left flank pain;Abd pain COMPARISON: <Comparisons> TECHNIQUE: CT imaging of the abdomen and pelvis was performed without contrast. Solid organ, bowel a nd vascular assessment is limited due to lack of IV and oral contrast. All CT scans are performed using dose optimization technique as appropriate and may include automated exposure control or mA/KV adjustment according to patient size. FINDINGS: The lower lung victor are clear. The liver, spleen, pancreas, adrenal glands are within normal limits for a limited non-contrast exami nation.Punctate right renal calculi noted without hydronephrosis. The left kidney appears positioned in the pelvis. No bowel obstruction, free air, free fluid or abscess. Small fat containing umbilical hernia. Moderat e colonic stool. The appendix is normal. The osseous structures are within normal limits. IMPRESSION: Punctate right nephrolithiasis without hydronephrosis. Left renal ectopia. A limited non-contrast examination was performed as detailed.
[2023-04-21 22:03] LABS: Specific Gravity > 1.030 (1.005-1.030); Urine Bacteria None Seen /HPF (<20); Urine Bilirubin NEGATIVE (Negative); Urine Blood Negative (Negative); Urine Clarity Turbid (Clear); Urine Color Light-Yellow (Yellow); Urine Glucose NEGATIVE (Negative); Urine Mucus Slight /HPF (None Seen); Urine Protein TRACE (Negative); Urine RBC <5 /HPF (None Seen); Urine Urobilinogen Normal (Normal)
[2023-04-21 22:11] LABS: Albumin 3.4 g/dL (3.4-5.0); Bilirubin Total 0.3 mg/dL (0.2-1.0); Protein, Total 7.8 g/dL (6.4-8.2)
[2023-04-21 22:18] LABS: Absolute Lymphocytes (CBC) 2.8 K/uL (0.7-4.9); Hematocrit 36.8 % (36.0-45.0); Lymphocytes % 39.3 % (15.3-44.8); MCV 82.8 fL (80-100); MPV 8.1 fL (7.6-11.3); Platelets 329 thou/uL (152-406); RBC Red Blood Cell Count 4.44 M/uL (3.86-4.86)
--- NOTE | 2023-04-21 22:45 | ER ---
Nurse's Notes [facility] Name: Mami Ziegler Age: 52 yrs Sex: Female : 1970 Arrival Date: 04/21/2023 Time: 20:30 Bed 18 Private MD: Diagnosis: Left flank pain;Abdominal pain, unspecified Presentation: 04/21 20:44 Chief complaint: Patient states: Left flank pain that radiates to abdomen onset cm10 yesterday. Pt denies any urinary symptoms. Coronavirus screen: Client denies travel out of the [place] in the last 14 days. Coronavirus screen: Vaccine status: Patient reports receiving the 2nd dose of the covid vaccine. Ebola Screen: Patient denies travel to an Ebola-affected area in the 21 days before illness onset. No symptoms or risks identified at this time. Initial Sepsis Screen: Does the patient meet any 2 criteria? No. Patient's initial sepsis screen is negative. Does the patient have a suspected source of infection? No. Patient's initial sepsis screen is negative. Risk Assessment: Do you want to hurt yourself or someone else? Patient reports no desire to harm self or others. Onset of symptoms was April 21, 2023. 20:44 Method Of Arrival: Ambulatory cm10 20:44 Acuity: FRANK 3 cm10 Historical: - Allergies: 20:46 No Known Allergies; cm10 - PMHx: 20:46 Diabetes - NIDDM; Hypertension; Hypothyroidism; cm10 - Immunization history:: Adult Immunizations unknown. - Social history:: Smoking status: Patient denies any tobacco usage or history of. Screenin:45 [facility] ED Fall Risk Assessment (Adult) History of falling in the last 3 months, nw1 including since admission No falls in past 3 months (0 pts) Confusion or Disorientation No (0 pts) Intoxicated or Sedated No (0 pts) Impaired Gait No (0 pts) Mobility Assist Device Used No (0 pt) Altered Elimination No (0 pt) Score/Fall Risk Level 0 - 2 = Low Risk Oriented to surroundings, Maintained a safe environment, Assessed \T\ reinforced patient's understanding of fall precautions, Provided non-skid footwear, Hourly rounding (assess needs \T\ fall precautionary measures) done. Abuse screen: Denies threats or abuse. Denies injuries from another. Nutritional screening: No deficits noted. Tuberculosis screening: No symptoms or risk factors identified. Assessment: 21:45 Reassessment: Introductions made, Pt placed in gown and placed on monitor. 22g IV LAC nw1 started by POLINA Eaton. Blood collected. Urine sent via tubing system. General: Appears in no apparent distress. comfortable, well groomed, well developed, well nourished, Behavior is calm, cooperative, appropriate for age. Pain: Complains of pain in left mid back Pain radiates to left upper quadrant Pain currently is 4 out of 10 on a pain scale. level that patient reports is acceptable is 4 out of 10 on a pain scale. Quality of pain is described as aching, Pain began 2-3 days ago. Neuro: Level of Consciousness is awake, alert, obeys commands, Oriented to person, place, time, situation, Appropriate for age. Cardiovascular: Denies chest pain, diaphoresis, fatigue, lightheadedness, nausea, palpitations, shortness of breath, syncope. Cardiovascular: Heart tones present Capillary refill < 3 seconds in bilateral. Respiratory: No deficits noted. Airway is patent Trachea midline Respiratory effort is even, unlabored, Respiratory pattern is regular, symmetrical. GI: Bowel sounds present X 4 quads. Abd is soft and non tender X 4 quads. GI: Reports. : Reports flank pain. Derm: No signs and/or symptoms reported regarding the dermatologic system. Musculoskeletal: No signs and/or symptoms reported regarding the musculoskeletal system. Vital Signs: 20:44 BP 167 / 90; Pulse 84; Resp 18; Temp 97.3(IR); Pulse Ox 100% ; Weight 84.82 kg; Height cm10 5 ft. 4 in. ; Pain 3/10; 23:37 BP 149 / 82; Pulse 81; Resp 15; Pulse Ox 98% on R/A; nw1 20:44 Body Mass Index 32.10 (84.82 kg, 162.56 cm) cm10 20:44 Pain Scale: Adult cm10 [place] Coma Score: 21:45 Eye Response: spontaneous(4). Motor Response: obeys commands(6). Verbal Response: nw1 oriented(5). Total: 15. ED Course: 20:32 Patient arrived in ED. jj6 20:33 Johnny Faith DO is Attending Physician. ms3 20:46 Triage completed. cm10 20:47 Arm band placed on Patient placed in waiting room. cm10 21:39 Liz Ansari, RN is Primary Nurse. nw1 21:45 Patient has correct armband on for positive identification. Placed in gown. Bed in low nw1 position. Call light in reach. Side rails up X2. Adult w/ patient. Provided Education on: POC. Door closed. Noise minimized. Warm blanket given. 21:45 No provider procedures requiring assistance completed. Inserted saline lock: 22 gauge nw1 in left Blood collected. 21:53 CT Abd/Pelvis - Without Contrast In Process Unspecified. EDMS 21:54 Urinalysis w/ reflexes Sent. kl 21:55 Missed attempt(s): 20 gauge in right antecubital area. kl 22:44 Anson Stratton DO is Referral Physician. ms3 23:37 IV discontinued, intact, bleeding controlled, No redness/swelling at site. Pressure nw1 dressing applied. Administered Medications: No medications were administered Medication: 21:45 VIS not applicable for this client. nw1 Outcome: 22:44 Discharge ordered by . ms3 23:37 Discharged to home ambulatory, with family, nw1 23:37 Condition: stable 23:37 Discharge instructions given to patient, Instructed on discharge instructions, follow up and referral plans. Demonstrated understanding of instructions, follow-up care, 23:39 Patient left the ED. nw1 Signatures: Dispatcher [employer] POLINAMS Mami العراقي, RN Johnny Jaimes DO DO ms3 Demond Laura jj6 Donita Ferrera RN RN Liz Luevano, RN RN nw1
--- NOTE | 2023-04-21 22:45 | EDPHYS ---
Physician Documentation [facility] Name: Mami Ziegler Age: 52 yrs Sex: Female : 1970 Arrival Date: 04/21/2023 Time: 20:30 Bed 18 Private MD: ED Physician Johnny Faith HPI: 04/21 20:47 This 52 yrs old Female presents to ER via Ambulatory with complaints of Abdominal Pain, ms3 Back Pain. 20:47 52-year-old female with past medical history of diabetes, hypothyroidism, hypertension ms3 presents to the emergency department for left flank pain that began on Sunday. Patient states the pain is now moved to the front. Patient denies hematuria, fever, nausea, vomiting. Patient endorses chills. Patient states her pain is a 3/10 and is worse when standing. Historical: - Allergies: 20:46 No Known Allergies; cm10 - PMHx: 20:46 Diabetes - NIDDM; Hypertension; Hypothyroidism; cm10 - Immunization history:: Adult Immunizations unknown. - Social history:: Smoking status: Patient denies any tobacco usage or history of. ROS: 20:47 Constitutional: Negative for fever, and chills. Neck: Negative for injury, pain, and ms3 swelling, Cardiovascular: Negative for chest pain, and palpitations. Respiratory: Negative for shortness of breath, cough, wheezing, and pleuritic chest pain, MS/Extremity: Negative for injury and deformity, 20:47 Abdomen/GI: Positive for abdominal pain, 20:47 Back: Positive for pain, 20:47 All other systems are negative, Exam: 20:47 Constitutional: This is a well developed, well nourished patient who is awake, alert, ms3 and in no acute distress. Head/Face: Normocephalic, atraumatic. Neck: Trachea midline, no cervical lymphadenopathy. Supple, full range of motion without nuchal rigidity, or vertebral point tenderness. No Meningismus. Chest/axilla: Normal chest wall appearance and motion. Nontender with no deformity. Cardiovascular: Regular rate and rhythm with a normal S1 and S2. No gallops, murmurs, or rubs. Normal PMI, no JVD. No pulse deficits. Respiratory: Lungs have equal breath sounds bilaterally, clear to auscultation and percussion. No rales, rhonchi or wheezes noted. No increased work of breathing, no retractions or nasal flaring. Abdomen/GI: Soft, non-tender, with normal bowel sounds. No distension or tympany. No guarding or rebound. No evidence of tenderness throughout. Skin: Warm, dry with normal turgor. Normal color with no rashes, no lesions, and no evidence of cellulitis. Vital Signs: 20:44 BP 167 / 90; Pulse 84; Resp 18; Temp 97.3(IR); Pulse Ox 100% ; Weight 84.82 kg; Height cm10 5 ft. 4 in. ; Pain 3/10; 23:37 BP 149 / 82; Pulse 81; Resp 15; Pulse Ox 98% on R/A; nw1 20:44 Body Mass Index 32.10 (84.82 kg, 162.56 cm) cm10 20:44 Pain Scale: Adult cm10 [place] Coma Score: 21:45 Eye Response: spontaneous(4). Motor Response: obeys commands(6). Verbal Response: nw1 oriented(5). Total: 15. MDM: 20:47 Differential diagnosis: Pyelonephritis Ureterolithiasis Abdominal Pain. ms3 21:03 Patient medically screened. ms3 23:04 Data reviewed: vital signs, nurses notes, lab test result(s). ms3 23:13 Care significantly affected by the following chronic conditions: Diabetes, ms3 Hypertension. Counseling: I had a detailed discussion with the patient and/or guardian regarding the historical points, exam findings, and any diagnostic results supporting the discharge/admit diagnosis, lab results, radiology results, the need for outpatient follow up, to return to the emergency department if symptoms worsen or persist or if there are any questions or concerns that arise at home. Special discussion: I discussed with the patient/guardian in detail that at this point there is no indication for admission to the hospital. It is understood, however, that if the symptoms persist or worsen the patient needs to return immediately for re-evaluation. ED course: Discussed labs, CT scan with patient and her son. Patient to follow-up with primary care physician in 2 to 3 days. Patient understands and agrees with plan. All questions were answered. Return precautions discussed include worsening symptoms, or any other concerns. On reevaluation patient symptoms improved, patient is alert and oriented x4, no apparent distress, nontoxic-appearing, speaking full sentences.. 12/02 20:55 Order name: CBC with Diff; Complete Time: 22:30 ms3 04/21 20:55 Order name: CMP; Complete Time: 22:13 ms3 04/21 20:55 Order name: Urinalysis w/ reflexes; Complete Time: 22:13 ms3 04/21 20:55 Order name: CT Abd/Pelvis - Without Contrast; Complete Time: 22:13 ms3 04/21 20:55 Order name: IV Saline Lock; Complete Time: 22:19 ms3 04/21 20:55 Order name: Labs collected and sent; Complete Time: 22:19 ms3 Administered Medications: No medications were administered Disposition Summary: 04/21/23 22:44 Discharge Ordered Notes: Location: Home ms3 Condition: Stable ms3 Diagnosis - Left flank pain ms3 - Abdominal pain, unspecified ms3 Followup: ms3 - With: Anson Stratton DO - When: 2 - 3 days - Reason: Recheck today's complaints Discharge Instructions: - Discharge Summary Sheet ms3 - Abdominal Pain, Adult ms3 Forms: - Medication Reconciliation Form ms3 - Thank You Letter ms3 - Antibiotic Education ms3 - Prescription Opioid Use ms3 - Patient Portal Instructions ms3 - Leadership Thank You Letter ms3 Signatures: Dispatcher [employer] Johnny Crawford DO DO ms3 Donita Ferrera, RN RN cm10
[2023-04-22 00:22] VITALS: TEMP 97.3
[2023-04-22 00:25] VITALS: BP 149/82; O2SAT 98
== END 2023-04-21 23:39 | disposition home or self-care (01) ==
LOC: ER 20:30
DX: R10.32 Left lower quadrant pain (principal); R10.9 Unspecified abdominal pain
CPT/HCPCS: 36415; 74176; 80053; 81001; 85025; 99283

== ENCOUNTER 2023-08-24 14:42 | Emergency (ER) | payer BC ==
--- NOTE | 2023-08-24 15:47 | RAD REPORT ---
EXAM DESCRIPTION: RAD - Knee Right 3 View - 08/24/2023 3:39 pm CLINICAL HISTORY: PAIN COMPARISON: No comparisons FINDINGS/IMPRESSION: No acute fracture. No malalignment. No significant focal degenerative changes. Small nonspecific knee effusion.
--- NOTE | 2023-08-24 16:44 | EDPHYS ---
Physician Documentation [facility] Name: Mami Ziegler Age: 52 yrs Sex: Female : 1970 Arrival Date: 08/24/2023 Time: 14:42 Bed 5 Private MD: Marco Schafer E ED Physician Azar Edwards HPI: 08/23 14:55 The patient presents with an injury, Pt felt a "pop" today. Has had right knee pain to bo1 the posterior area for about a week. Son has driven the pt over to the ER.. The complaints affect the posterior aspect of right knee. Pt has some "pain" with walking.. 16:39 Pt is RLE dominant.. bo1 Historical: - Allergies: 14:48 No Known Allergies; ll1 - Home Meds: 14:54 metformin 500 mg Oral tablet [Active]; levothyroxine 75 mcg capsule [Active]; losartan ll1 25 mg oral tablet [Active]; monjouro [Active]; Singulair 10 mg Oral tablet [Active]; - PMHx: 14:48 Diabetes - NIDDM; Hypertension; Hypothyroidism; ll1 - PSHx: 14:48 None; ll1 - Immunization history:: Adult Immunizations up to date. - Infectious Disease History:: Denies. - Social history:: Smoking status: Patient denies any tobacco usage or history of. ROS: 14:57 MS/extremity: Positive for decreased range of motion, pain, bo1 Exam: 16:20 Musculoskeletal/extremity: Circulation is intact in all extremities. Compartment bo1 Syndrome exam of affected extremity: is normal. no numbness, no tingling, no weak pulses, Joints: All joints are normal except the right knee displays Mild decrease in ROM but no ecchymosis or laxity. No appreciated joint effusion. No discoloration to the knee or skin surfaces. Pt had complained of the "pop" to the popliteal area., Vital Signs: 14:47 BP 161 / 86; Pulse 97; Resp 17; Temp 98.2; Pulse Ox 99% ; Weight 91.17 kg; Height 5 ft. ll1 5 in. ; Pain 5/10; 16:58 BP 148 / 75; Pulse 68; Resp 16 S; Pulse Ox 99% on R/A; as6 14:47 Body Mass Index 33.45 (91.17 kg, 165.1 cm) ll1 14:47 Pain Scale: Adult ll1 MDM: 14:55 Patient medically screened. bo1 16:37 Differential diagnosis: tendonitis. ED course: Discussion with the pt and son of the bo1 xray findings and if need be a MRI of the knee if not better in two weeks. Orthopedic F/U if not better. Suspect a "Lee's cyst.". 08/23 14:58 Order name: Knee Right 3 View XRAY; Complete Time: 15:49 bo1 08/23 16:11 Order name: Knee Immobilizer; Complete Time: 16:56 bo1 08/23 16:11 Order name: Crutch Training; Complete Time: 16:56 bo1 08/23 16:11 Order name: Crutches; Complete Time: 16:56 bo1 Administered Medications: No medications were administered Disposition Summary: 08/24/23 16:43 Discharge Ordered Notes: Location: Home bo1 Problem: new bo1 Symptoms: are unchanged bo1 Condition: Stable bo1 Diagnosis - Synovial cyst of popliteal space [Lee], right knee bo1 Followup: bo1 - With: Private Physician - When: 10 - 14 days - Reason: Worsening of condition, Re-evaluation by your physician Discharge Instructions: - Discharge Summary Sheet bo1 - Lee Cyst bo1 Forms: - Work release form hb - Medication Reconciliation Form bo1 - Thank You Letter bo1 - Antibiotic Education bo1 - Prescription Opioid Use bo1 - Patient Portal Instructions bo1 - Leadership Thank You Letter bo1 Prescriptions: - Naprosyn 500 mg Oral Tablet - take 1 tablet ORAL route 2 times per day take with food; 30 tablet; Refills: 0, bo1 Product Selection Permitted Signatures: Dispatcher [employer] EDMS Karolina العراقي RN RN ll1 Gurmeet Amador RN RN as6 Azar Edwards MD MD bo1 Corrections: (The following items were deleted from the chart) 14:59 14:59 Knee Right 3 View+[email or web address] ordered. EDMS EDMS
--- NOTE | 2023-08-24 16:44 | ER ---
Nurse's Notes [facility] Name: Mami Ziegler Age: 52 yrs Sex: Female : 1970 Arrival Date: 08/24/2023 Time: 14:42 Bed 5 Private MD: Marco Schafer E Diagnosis: Synovial cyst of popliteal space [Lee], right knee Presentation: 08/23 14:47 Chief complaint: Patient states: Slight R knee pain for 7 days. Girard a pop and pain ll1 today while working. Coronavirus screen: Client denies travel out of the [place] in the last 14 days. At this time, the client does not indicate any symptoms associated with coronavirus-19. Ebola Screen: Patient denies travel to an Ebola-affected area in the 21 days before illness onset. Initial Sepsis Screen: Does the patient meet any 2 criteria? No. Patient's initial sepsis screen is negative. Does the patient have a suspected source of infection? No. Patient's initial sepsis screen is negative. Risk Assessment: Do you want to hurt yourself or someone else? Patient reports no desire to harm self or others. Onset of symptoms was August 24, 2023. 14:47 Method Of Arrival: Wheelchair ll1 14:47 Acuity: FRANK 4 ll1 Triage Assessment: 14:52 General: Appears uncomfortable, Behavior is calm, cooperative, appropriate for age. ll1 Pain: Complains of pain in R knee Pain currently is 5 out of 10 on a pain scale. Quality of pain is described as aching. Musculoskeletal: Circulation, motion, and sensation intact. Capillary refill < 3 seconds, Reports pain in R knee. Historical: - Allergies: 14:48 No Known Allergies; ll1 - Home Meds: 14:54 metformin 500 mg Oral tablet [Active]; levothyroxine 75 mcg capsule [Active]; losartan ll1 25 mg oral tablet [Active]; monjouro [Active]; Singulair 10 mg Oral tablet [Active]; - PMHx: 14:48 Diabetes - NIDDM; Hypertension; Hypothyroidism; ll1 - PSHx: 14:48 None; ll1 - Immunization history:: Adult Immunizations up to date. - Infectious Disease History:: Denies. - Social history:: Smoking status: Patient denies any tobacco usage or history of. Screenin:57 [facility] ED Fall Risk Assessment (Adult) History of falling in the last 3 months, as6 including since admission No falls in past 3 months (0 pts) Confusion or Disorientation No (0 pts) Intoxicated or Sedated No (0 pts) Impaired Gait No (0 pts) Mobility Assist Device Used No (0 pt) Altered Elimination No (0 pt) Score/Fall Risk Level 0 - 2 = Low Risk Oriented to surroundings, Maintained a safe environment, Educated pt \T\ family on fall prevention, incl call for assistance when getting out of bed, Assessed \T\ reinforced patient's understanding of fall precautions, Hourly rounding (assess needs \T\ fall precautionary measures) done. Abuse screen: Denies threats or abuse. Denies injuries from another. Nutritional screening: No deficits noted. Tuberculosis screening: No symptoms or risk factors identified. Assessment: 16:56 General: Appears in no apparent distress. Behavior is calm, cooperative. Pain: as6 Complains of pain in right knee. Neuro: Level of Consciousness is awake, alert, obeys commands, Oriented to person, place, time, situation. Cardiovascular: Capillary refill < 3 seconds Patient's skin is warm and dry. Respiratory: Respiratory effort is even, unlabored, Respiratory pattern is regular, symmetrical. GI: No deficits noted. No signs and/or symptoms were reported involving the gastrointestinal system. : No deficits noted. No signs and/or symptoms were reported regarding the genitourinary system. EENT: No deficits noted. No signs and/or symptoms were reported regarding the EENT system. Derm: Skin is intact, is healthy with good turgor. Musculoskeletal: Range of motion: limited in right knee Reports pain in right knee. Vital Signs: 14:47 BP 161 / 86; Pulse 97; Resp 17; Temp 98.2; Pulse Ox 99% ; Weight 91.17 kg; Height 5 ft. ll1 5 in. ; Pain 5/10; 16:58 BP 148 / 75; Pulse 68; Resp 16 S; Pulse Ox 99% on R/A; as6 14:47 Body Mass Index 33.45 (91.17 kg, 165.1 cm) ll1 14:47 Pain Scale: Adult ll1 ED Course: 14:43 Patient arrived in ED. mr 14:45 Marco Schafer MD is Private Physician. mr 14:46 Azar Edwards MD is Attending Physician. bo1 14:48 Triage completed. ll1 14:52 Arm band placed on. ll1 15:41 Knee Right 3 View XRAY In Process Unspecified. EDMS 16:26 Khloe Clmeent, RN is Primary Nurse. ko1 16:57 Placed in gown. Bed in low position. Call light in reach. Provided Education on: follow as6 up with ortho . 16:57 No provider procedures requiring assistance completed. Patient did not have IV access as6 during this emergency room visit. Crutch training done. Knee immobilizer applied on right knee. Administered Medications: No medications were administered Medication: 16:57 VIS not applicable for this client. as6 Outcome: 16:43 Discharge ordered by . bo1 16:57 Discharged to home via wheelchair, with crutches, with family, as6 16:57 Condition: stable 16:57 Discharge instructions given to patient, family, Instructed on discharge instructions, follow up and referral plans. medication usage, crutch walking, Demonstrated understanding of instructions, follow-up care, medications, crutch walking, Prescriptions given X 1, 16:59 Patient left the ED. as6 Signatures: Dispatcher [employer] EDDC Jessy Shaffer, Reg Reg mr Karolina العراقي RN RN ll1 Gurmeet Amador RN RN as6 Khloe Clement, RN RN ko1 Azar Edwards MD MD bo1 Corrections: (The following items were deleted from the chart) 14:52 14:47 BP 142 / 102; Pulse 97bpm; Resp 17bpm; Pulse Ox 99%; 91.17 kg; Height 5 ft. 5 ll1 in.; BMI: 33.4; Pain 5/10, Adult; ll1 14:54 14:47 Chief complaint: Patient states: Slight R knee pain for 7-10 days. Girard a pop and ll1 pain today while working. ll1
[2023-08-24 18:17] VITALS: BP 148/75; TEMP 98.2; O2SAT 99
== END 2023-08-24 16:59 | disposition home or self-care (01) ==
LOC: ER 14:42
DX: M71.21 Synovial cyst of popliteal space [Baker], right knee (principal); I10 Essential (primary) hypertension; E11.9 Type 2 diabetes mellitus without complications; E03.9 Hypothyroidism, unspecified
CPT/HCPCS: 99283

== ENCOUNTER 2023-09-03 21:28 | Emergency (ER) | payer BC, OTHER ==
[2023-09-03] MEDS ORDERED: CODEINE 30MG/APAP 300MG TAB ONE (22:51)
[2023-09-03] MEDS ORDERED: methocarbamoL 500 MG TAB ONE (22:51)
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
[2023-09-04 08:31] VITALS: BP 137/73; TEMP 97.2; O2SAT 98
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
== END 2023-09-04 00:32 | disposition home or self-care (01) ==
LOC: ER 21:28
DX: S10.93XA Contusion of unspecified part of neck, initial encounter (principal); S20.229A Contusion of unspecified back wall of thorax, initial encounter; V49.59XA Passenger injured in collision with other motor vehicles in traffic accident, initial encounter
CPT/HCPCS: 70450; 71250; 72125; 99283